=== PATIENT | male | born 1945 | race Caucasian/White ===

== ENCOUNTER 2020-05-02 15:54 | Emergency (ER) | payer MEDICARE, MEDICAID ==
[~2020-05-02] VITALS: Ht 185.4 cm; Wt 104.5 kg
[~2020-05-02 15:54] MED LIST: CYCL-1 PO; HYDR28CR14 TOP; LIDOcaine 1% W/epiNEPHrine 1:200,000 10ml vial ONE
[2020-05-02 16:14] VITALS: BP 138/59
[2020-05-02] MEDS ORDERED: TETanus/Pertussis (Acell)/Diphther VAC/PF (Tdap-Adult) 0.5ml syringe IMVAC ONE (17:00)
== END 2020-05-02 17:28 | disposition home or self-care (01) ==
LOC: ER 15:55
DX: S91.209A Unspecified open wound of unspecified toe(s) with damage to nail, initial encounter (principal); M79.674 Pain in right toe(s); I10 Essential (primary) hypertension; K21.9 Gastro-esophageal reflux disease without esophagitis; G89.29 Other chronic pain; Z87.11 Personal history of peptic ulcer disease; Z98.890 Other specified postprocedural states; Z79.899 Other long term (current) drug therapy; X58.XXXA Exposure to other specified factors, initial encounter; Y93.89 Activity, other specified; Y92.89 Other specified places as the place of occurrence of the external cause; Y99.8 Other external cause status
CPT/HCPCS: 11730; 90471; 90715; 99283; 99284

== ENCOUNTER 2022-09-03 12:04 | Emergency (ER) | payer OTHER, MEDICAID ==
[~2022-09-03] VITALS: Ht 185.4 cm; Wt 104.5 kg
[~2022-09-03 12:04] MED LIST changes: -LIDOcaine 1% W/epiNEPHrine 1:200,000 10ml vial ONE; +RIVA20TA PO
[2022-09-03 12:49] VITALS: BP 130/74
[2022-09-03] MEDS ORDERED: GUAI400T92 PO (15:44)
[2022-09-03] MEDS ORDERED: AZIT-31 PO (15:44)
[2022-09-03] MEDS ORDERED: ALBU8HFA PO (15:44)
== END 2022-09-03 15:59 | disposition home or self-care (01) ==
LOC: ER 12:05
DX: J06.9 Acute upper respiratory infection, unspecified (principal); I10 Essential (primary) hypertension; K21.9 Gastro-esophageal reflux disease without esophagitis; G89.29 Other chronic pain; M54.9 Dorsalgia, unspecified; E11.9 Type 2 diabetes mellitus without complications; F17.200 Nicotine dependence, unspecified, uncomplicated; Z79.899 Other long term (current) drug therapy
CPT/HCPCS: 71046; 99283

== ENCOUNTER 2023-04-22 11:05 | Emergency (ER) | payer MEDICARE, MEDICAID ==
[~2023-04-22] VITALS: Ht 185.4 cm; Wt 109.0 kg
[~2023-04-22 11:05] MED LIST changes: +GUAI400T92 PO
[2023-04-22 11:07] VITALS: BP 152/90; PULSE 55; RESP 16; TEMP 97.6; O2SAT 94
[2023-04-22] MEDS ORDERED: RIVA20TA PO (13:13)
== END 2023-04-22 13:24 | disposition home or self-care (01) ==
LOC: ER 11:06
DX: I74.8 Embolism and thrombosis of other arteries (principal); Z76.0 Encounter for issue of repeat prescription; I10 Essential (primary) hypertension; G89.29 Other chronic pain; M54.9 Dorsalgia, unspecified
CPT/HCPCS: 99281

== ENCOUNTER 2023-06-16 10:41 | Emergency (ER) | payer MEDICARE, MEDICAID ==
[~2023-06-16] VITALS: Ht 185.4 cm; Wt 92.5 kg
[2023-06-16 10:54] VITALS: BP 160/68; PULSE 90; RESP 18; O2SAT 98
[2023-06-16] MEDS ORDERED: RIVA20TA PO (12:32)
[2023-06-16] MEDS ORDERED: MAGN296S68 PO (12:32)
--- NOTE | 2023-06-16 17:46 | NUR ---
I have reviewed and agree with all interventions, assessments performed and documented by Mine Baker LVN
[2023-06-16 18:17] VITALS: TEMP 98
[2023-06-16 21:50] LABS: OCCULT BLOOD STOOL NEGATIVE (Neg)
== END 2023-06-16 18:18 | disposition home or self-care (01) ==
LOC: ER 10:42
DX: K59.00 Constipation, unspecified (principal); I10 Essential (primary) hypertension; K21.9 Gastro-esophageal reflux disease without esophagitis; Z79.899 Other long term (current) drug therapy
CPT/HCPCS: 82272; 99283

== ENCOUNTER 2024-09-01 14:28 | Inpatient (IN) | payer MEDICARE, MEDICAID ==
[~2024-09-01] VITALS: Ht 185.4 cm; Wt 86.0 kg
[~2024-09-01 14:28] MED LIST changes: -CYCL-1 PO; -RIVA20TA PO
[2024-09-01 16:48] LABS: BASOPHILS % (AUTO) 0.2 % (0-1); EOSINOPHILS % (AUTO) 0.1 % (0-6); HEMATOCRIT 38.5 % (42.0-52.0); HEMOGLOBIN 13.2 g/dl (14.0-17.9); LYMPHOCYTES % (AUTO) 15.5 % (21-51); MEAN CORPUSCULAR HEMOGLOBIN 31.3 PG (27.0-31.0); MEAN CORPUSCULAR HGB CONC 34.2 g/dL (33.0-36.5); MEAN CORPUSCULAR VOLUME 91.3 FL (78-98); MEAN PLATELET VOLUME 7.9 FL (7.4-10.4); MONOCYTES # (AUTO) 0.9 X10'3 (0-0.9); MONOCYTES % (AUTO) 12.9 % (2-12); NEUTROPHILS # (AUTO) 4.8 X10'3 (1.8-7.7); NEUTROPHILS % (AUTO) 71.3 % (42-75); PLATELET COUNT 185 X10'3 (140-440); RED BLOOD COUNT 4.22 X10'6 (4.70-6.10); RED CELL DISTRIBUTION WIDTH 13.7 % (11.5-14.5); WHITE BLOOD COUNT 6.7 X10'3 (4.5-11.0)
[2024-09-01 17:00] LABS: ALBUMIN 3.1 G/DL (3.4-5.0); ANION GAP 10 (8-16); BLOOD UREA NITROGEN 24 MG/DL (7-18); BUN/CREATININE RATIO 24.7 (10.0-20.0); CALCIUM 8.6 MG/DL (8.5-10.1); CHLORIDE 95 MMOL/L (99-107); CREATININE 0.97 MG/DL (0.60-1.10); GLUCOSE 345 MG/DL (70-104); MAGNESIUM 1.9 MG/DL (1.5-2.4); SODIUM 131 MMOL/L (135-145); TOTAL CARBON DIOXIDE 26.1 MMOL/L (24-32); eCRCL 71 ML/MIN; eGFR 75 ML/MIN
[2024-09-01] MEDS: normal saline 1000ML IV soln IVB ONE (18:00)
[2024-09-01] MEDS ORDERED: OMEP40CA21 PO (20:28)
[2024-09-01] MEDS ORDERED: RIVA20TA PO (20:28)
[2024-09-01] MEDS ORDERED: potassium Cl 40MEQ/1/2NS 520ml 520 ML IV PRN (21:35)
[2024-09-01] MEDS ORDERED: magnesium sulf-water 2g/50mL 50 ML IV PRN (21:35)
[2024-09-01] MEDS ORDERED: magnesium Cl slow-release 64mg tablet PO PRN (21:35)
[2024-09-01] MEDS ORDERED: magnesium hydroxide 30ml (MOM) UD suspension PO PRN (21:35)
[2024-09-01] MEDS ORDERED: potassium Cl 20 mEq SR tablet PO PRN ×2 (21:35)
[2024-09-01] MEDS ORDERED: acetaminophen 325mg tablet PO PRN (21:35)
[2024-09-01] MEDS ORDERED: magnesium sulf-water 4G/100mL 100 ML IV PRN (21:35)
[2024-09-01] MEDS ORDERED: ondansetron/PF 4mg/2ml inj IV PRN (21:35)
[2024-09-01] MEDS ORDERED: mag hydrox/Alum hydrox/simeth 30ml oral suspension PO PRN (21:35)
[2024-09-01] MEDS ORDERED: iohexol 350MG/ML 100ml bottle IV ONE (21:52)
[2024-09-01] MEDS: normal saline 1000ml 1,000 ML IV SCH (22:13)
[2024-09-01 22:16] LABS: APTT 28 SECONDS (22-32); PROTHROMBIN TIME 10.9 SECONDS (9.0-12.0)
[2024-09-01] MEDS ORDERED: glucagon, human recombinant 1mg kit SUBCUT PRN (22:20)
[2024-09-01] MEDS ORDERED: DEXTROSE 15 GM of carb/4 tabs (each vial/BOTTLE has 4 tablets) PO PRN ×2 (22:20)
[2024-09-01] MEDS: insulin glargine (Lantus) pen - multi-dose SQ SCH (22:20)
[2024-09-01] MEDS ORDERED: dextrose 50%-water 50ml dispensing syringe IV PRN ×2 (22:20)
[2024-09-01 22:24] LABS: PRO BRAIN NATRIURETIC PEPTIDE 329 PG/ML (0-450); THYROID STIMULATING HORMONE 0.97 ulU/ml (0.34-4.50)
[2024-09-01 22:41] LABS: HEMOGLOBIN A1C > 12.0 % (4.5-6.2)
[2024-09-01 23:02] LABS: BILIRUBIN,URINE NEGATIVE (Neg); CLARITY,URINE CLEAR (Clear); COLOR,URINE YELLOW (Yellow); GLUCOSE, URINE >=1000 mg/dl (Neg); KETONES,URINE 15 mg/dl (Neg); LEUKOCYTE ESTERASE ,URINE NEGATIVE (Neg); NITRITES, URINE NEGATIVE (Neg); OCCULT BLOOD,URINE TRACE-INTACT (Neg); PH,URINE 5.5 (4.8-8.0); PROTEIN,URINE 30 mg/dl (Neg); UROBILINOGEN,URINE 0.2 E.U/dL (0.2-1.0)
[2024-09-01] MEDS: ipratropium/albuterol 3ml nebule NEB PRN (23:08)
[2024-09-01 23:10] VITALS: PULSE 109; RESP 18; O2SAT 94
[2024-09-01 23:14] LABS: UA COLLECTION TYPE URINAL
[2024-09-01 23:16] VITALS: PULSE 104; RESP 18
[2024-09-01 23:16] LABS: BACTERIA,URINE FEW /HPF (Neg); RBC,URINE 0-2 /HPF (0-2); SQUAMOUS EPITHELIAL CELL,UR FEW /LPF (FEW)
[2024-09-01 23:17] LABS: WBC,URINE 0-4 /HPF (0-4)
[2024-09-02] MEDS: insulin Lispro (HumaLOG) vial - multi-dose SQ ONE (00:47)
[2024-09-02] MEDS ORDERED: apixaban 5mg tablet PO SCH (01:15)
[2024-09-02] MEDS: insulin regular, human 10 units/0.1 ml syringe IV ONE (01:57)
[2024-09-02] MEDS: albuterol 2.5 MG/3 ML nebule NEB SCH (02:00)
[2024-09-02 02:59] VITALS: PULSE 99; RESP 20; O2SAT 93
[2024-09-02] MEDS: glipizide 5mg tablet PO ONE (03:16)
[2024-09-02 04:04] LABS: BASOPHILS % (AUTO) 0.2 % (0-1); EOSINOPHILS % (AUTO) 0.6 % (0-6); HEMOGLOBIN 11.3 g/dl (14.0-17.9); LYMPHOCYTES # (AUTO) 1.4 X10'3 (1.1-4.8); MEAN CORPUSCULAR HEMOGLOBIN 30.4 PG (27.0-31.0); MEAN CORPUSCULAR HGB CONC 33.4 g/dL (33.0-36.5); MEAN CORPUSCULAR VOLUME 91.1 FL (78-98); MEAN PLATELET VOLUME 7.1 FL (7.4-10.4); MONOCYTES % (AUTO) 15.4 % (2-12); NEUTROPHILS # (AUTO) 3.9 X10'3 (1.8-7.7); NEUTROPHILS % (AUTO) 61.8 % (42-75); PLATELET COUNT 162 X10'3 (140-440); RED BLOOD COUNT 3.73 X10'6 (4.70-6.10); RED CELL DISTRIBUTION WIDTH 13.6 % (11.5-14.5); WHITE BLOOD COUNT 6.4 X10'3 (4.5-11.0)
[2024-09-02 04:20] LABS: APTT 28 SECONDS (22-32); D-DIMER 2.74 MG/L FEU (0-0.50); INR 1.1 INR
[2024-09-02 04:23] LABS: ALANINE AMINOTRANSFERASE 38 U/L (12-78); ALBUMIN 2.6 G/DL (3.4-5.0); ALBUMIN/GLOBULIN RATIO 0.6 (1.1-1.5); ALKALINE PHOSPHATASE 54 IU/L (46-116); ANION GAP 9 (8-16); ASPARTATE AMINO TRANSFERASE 53 U/L (10-37); BILIRUBIN,TOTAL 0.6 MG/DL (0.1-1.0); BLOOD UREA NITROGEN 20 MG/DL (7-18); BUN/CREATININE RATIO 21.3 (10.0-20.0); CALCIUM 8.3 MG/DL (8.5-10.1); CHLORIDE 98 MMOL/L (99-107); CHOL/HDL RATIO 2.3 (0.00-4.99); CHOLESTEROL 111 MG/DL (0-200); CREATININE 0.94 MG/DL (0.60-1.10); GLUCOSE 300 MG/DL (70-104); HDL CHOLESTEROL 49 MG/DL (35-60); LDL CHOLESTEROL 49 MG/DL (50-100); MAGNESIUM 1.7 MG/DL (1.5-2.4); PHOSPHORUS 2.9 MG/DL (2.3-4.5); SODIUM 132 MMOL/L (135-145); TOTAL PROTEIN 6.9 G/DL (6.4-8.2); TRIGLYCERIDES 80 MG/DL (20-135); eCRCL 73 ML/MIN; eGFR 78 ML/MIN
[2024-09-02 04:43] LABS: TOTAL CELLS COUNTED 100
[2024-09-02] MEDS: INSULIN LISPRO 100 UNIT/ML INSULN.PEN MULTI-DOSE SQ SCH (07:00)
[2024-09-02] MEDS: docusate sod 100mg capsule PO SCH (08:00)
[2024-09-02] MEDS: K and/or MAG REPLACEMENT MC SCH (08:00)
[2024-09-02 08:56] VITALS: PULSE 88; RESP 18; O2SAT 93
[2024-09-02] MEDS: pantoprazole 40mg Tablet.DR PO SCH (09:15)
[2024-09-02 14:59] VITALS: PULSE 88; RESP 20; O2SAT 94
[2024-09-02 17:32] VITALS: RESP 14; O2SAT 96
[2024-09-02 18:00] VITALS: BP 161/62; PULSE 90; RESP 18; TEMP 98; O2SAT 94
[2024-09-02] MEDS ORDERED: rivaroxaban 20mg tablet PO SCH (18:00)
[2024-09-02] MEDS ORDERED: rivaroxaban 15mg tablet PO SCH (18:00)
[2024-09-02] MEDS: rivaroxaban 20mg tablet PO SCH (19:27)
[2024-09-02 22:00] VITALS: BP 120/53; PULSE 91; RESP 18; TEMP 98.3; O2SAT 93
[2024-09-03] VITALS (8 sets, daily range): BP systolic 116–170; BP diastolic 45–75; PULSE 53–102; RESP 14–18; TEMP 97.4–98; O2SAT 90–98
[2024-09-03] MEDS: HYDROcodone/acetaminophen 5mg/325mg tablet PO PRN ×2 (00:46→14:39)
[2024-09-03] MEDS: glipizide 5mg tablet PO ONE (05:34)
[2024-09-03 06:57] LABS: BASOPHILS % (AUTO) 0.3 % (0-1); EOSINOPHILS # (AUTO) 0.2 X10'3 (0-0.9); EOSINOPHILS % (AUTO) 2.8 % (0-6); HEMATOCRIT 33.3 % (42.0-52.0); HEMOGLOBIN 11.3 g/dl (14.0-17.9); MEAN CORPUSCULAR HEMOGLOBIN 30.7 PG (27.0-31.0); MEAN CORPUSCULAR HGB CONC 34.1 g/dL (33.0-36.5); MEAN CORPUSCULAR VOLUME 90.1 FL (78-98); MEAN PLATELET VOLUME 7.5 FL (7.4-10.4); MONOCYTES # (AUTO) 0.8 X10'3 (0-0.9); MONOCYTES % (AUTO) 12.6 % (2-12); NEUTROPHILS # (AUTO) 3.4 X10'3 (1.8-7.7); NEUTROPHILS % (AUTO) 53.3 % (42-75); PLATELET COUNT 160 X10'3 (140-440); RED BLOOD COUNT 3.69 X10'6 (4.70-6.10); RED CELL DISTRIBUTION WIDTH 13.4 % (11.5-14.5); WHITE BLOOD COUNT 6.3 X10'3 (4.5-11.0)
[2024-09-03 07:01] LABS: APTT 33 SECONDS (22-32); INR 1.2 INR; PROTHROMBIN TIME 12.6 SECONDS (9.0-12.0)
[2024-09-03 07:17] LABS: ALANINE AMINOTRANSFERASE 32 U/L (12-78); ALBUMIN 2.5 G/DL (3.4-5.0); ALBUMIN/GLOBULIN RATIO 0.6 (1.1-1.5); ALKALINE PHOSPHATASE 54 IU/L (46-116); ANION GAP 7 (8-16); ASPARTATE AMINO TRANSFERASE 40 U/L (10-37); BILIRUBIN,TOTAL 0.5 MG/DL (0.1-1.0); BLOOD UREA NITROGEN 16 MG/DL (7-18); BUN/CREATININE RATIO 21.1 (10.0-20.0); CALCIUM 8.5 MG/DL (8.5-10.1); CHLORIDE 100 MMOL/L (99-107); CREATININE 0.76 MG/DL (0.60-1.10); GLUCOSE 284 MG/DL (70-104); MAGNESIUM 1.9 MG/DL (1.5-2.4); POTASSIUM 3.8 MMOL/L (3.5-5.1); SODIUM 133 MMOL/L (135-145); TOTAL CARBON DIOXIDE 25.7 MMOL/L (24-32); TOTAL PROTEIN 6.9 G/DL (6.4-8.2); eCRCL 91 ML/MIN; eGFR > 90 ML/MIN
[2024-09-03] MEDS: atorvastatin 20mg tablet PO SCH (09:54)
[2024-09-03] MEDS: lisinopril 5mg tablet PO SCH (09:55)
[2024-09-03] MEDS ORDERED: metFORMIN 500mg tablet PO SCH (11:30)
[2024-09-03] MEDS: metFORMIN 500mg tablet PO SCH (12:20)
[2024-09-03] MEDS ORDERED: iohexol 350MG/ML 100ml bottle IV ONE (17:50)
[2024-09-03] MEDS: calcium carbonate/vitamin D3 tablet PO SCH (17:51)
[2024-09-03] MEDS: acetaminophen 325mg tablet PO PRN (19:13)
[2024-09-04] VITALS (21 sets, daily range): BP systolic 117–150; BP diastolic 50–88; PULSE 69–91; RESP 13–23; TEMP 97.6–98.2; O2SAT 92–98
[2024-09-04 05:49] LABS: BASOPHILS % (AUTO) 0.3 % (0-1); EOSINOPHILS # (AUTO) 0.2 X10'3 (0-0.9); EOSINOPHILS % (AUTO) 2.4 % (0-6); HEMATOCRIT 32.5 % (42.0-52.0); HEMOGLOBIN 11.2 g/dl (14.0-17.9); LYMPHOCYTES # (AUTO) 1.6 X10'3 (1.1-4.8); LYMPHOCYTES % (AUTO) 20.7 % (21-51); MEAN CORPUSCULAR HEMOGLOBIN 31.3 PG (27.0-31.0); MEAN CORPUSCULAR HGB CONC 34.4 g/dL (33.0-36.5); MEAN PLATELET VOLUME 7.4 FL (7.4-10.4); MONOCYTES % (AUTO) 13.2 % (2-12); NEUTROPHILS % (AUTO) 63.4 % (42-75); PLATELET COUNT 180 X10'3 (140-440); RED BLOOD COUNT 3.57 X10'6 (4.70-6.10); RED CELL DISTRIBUTION WIDTH 13.4 % (11.5-14.5); WHITE BLOOD COUNT 7.9 X10'3 (4.5-11.0)
[2024-09-04 06:00] LABS: APTT 30 SECONDS (22-32); INR 1.1 INR; PROTHROMBIN TIME 11.5 SECONDS (9.0-12.0)
[2024-09-04 06:26] LABS: ALANINE AMINOTRANSFERASE 34 U/L (12-78); ALBUMIN 2.2 G/DL (3.4-5.0); ALBUMIN/GLOBULIN RATIO 0.5 (1.1-1.5); ALKALINE PHOSPHATASE 51 IU/L (46-116); ANION GAP 6 (8-16); ASPARTATE AMINO TRANSFERASE 31 U/L (10-37); BILIRUBIN,TOTAL 0.5 MG/DL (0.1-1.0); BLOOD UREA NITROGEN 19 MG/DL (7-18); BUN/CREATININE RATIO 20.9 (10.0-20.0); CALCIUM 8.6 MG/DL (8.5-10.1); CHLORIDE 102 MMOL/L (99-107); CREATININE 0.91 MG/DL (0.60-1.10); GLUCOSE 259 MG/DL (70-104); MAGNESIUM 1.9 MG/DL (1.5-2.4); PHOSPHORUS 3.6 MG/DL (2.3-4.5); POTASSIUM 4.2 MMOL/L (3.5-5.1); SODIUM 137 MMOL/L (135-145); TOTAL CARBON DIOXIDE 29.5 MMOL/L (24-32); TOTAL PROTEIN 6.4 G/DL (6.4-8.2); eCRCL 76 ML/MIN; eGFR 81 ML/MIN
[2024-09-04] MEDS: metFORMIN 500mg tablet PO SCH (06:31)
[2024-09-04] MEDS ORDERED: metFORMIN 500mg tablet PO SCH (08:00)
[2024-09-04] MEDS: cholecalciferol (vitamin D3) 1,000 unit (25mcg) tablet PO SCH (08:40)
[2024-09-04] MEDS ORDERED: BUPIVAcaine 2.5mg/ml inj 50ml vial (contains preservative) ONE (17:14)
[2024-09-04] MEDS ORDERED: sevoflurane 250ml liquid IH ONE (17:27)
[2024-09-04] MEDS ORDERED: fentaNYL/PF 50MCG/1 ML 2ML syringe ONE (17:32)
[2024-09-04] MEDS: BUPIVAcaine/PF 2.5 mg/ml (0.25%) 30ml vial IJ ONE (17:57)
[2024-09-04] MEDS ORDERED: propofol inj 20 ML IV ONE (18:05)
[2024-09-04] MEDS ORDERED: ceFAZolin 1000mg inj ONE ×2 (18:05)
[2024-09-04] MEDS ORDERED: ondansetron/PF 4mg/2ml inj IV PRN (19:05)
[2024-09-04] MEDS: ringers solution, lacted 1,000 ML IV SCH (19:05)
[2024-09-04] MEDS ORDERED: HYDROmorphone/PF 0.2 MG/ML SYRINGE IV PRN ×2 (19:05)
[2024-09-04] MEDS ORDERED: morphine 2 MG/ML inj. syringe IV PRN (19:05)
[2024-09-04] MEDS ORDERED: labetalol 20mg/4ml (5mg/ml) syringe IV PRN (19:05)
[2024-09-04] MEDS ORDERED: morphine 4 MG/ML inj SYRINge IV PRN (19:05)
[2024-09-04] MEDS ORDERED: dextrose 50%-water 50ml dispensing syringe IV PRN ×2 (22:10)
[2024-09-04] MEDS ORDERED: glucagon, human recombinant 1mg kit SUBCUT PRN (22:10)
[2024-09-04] MEDS ORDERED: DEXTROSE 15 GM of carb/4 tabs (each vial/BOTTLE has 4 tablets) PO PRN ×2 (22:10)
[2024-09-04] MEDS: INSULIN LISPRO 100 UNIT/ML INSULN.PEN MULTI-DOSE SQ SCH (22:38)
[2024-09-05 06:00] VITALS: BP 123/55; PULSE 80; RESP 18; TEMP 97.6; O2SAT 96
[2024-09-05 06:43] LABS: BASOPHILS % (AUTO) 0.4 % (0-1); EOSINOPHILS # (AUTO) 0.3 X10'3 (0-0.9); EOSINOPHILS % (AUTO) 3.9 % (0-6); HEMATOCRIT 32.1 % (42.0-52.0); HEMOGLOBIN 11.1 g/dl (14.0-17.9); LYMPHOCYTES # (AUTO) 1.8 X10'3 (1.1-4.8); LYMPHOCYTES % (AUTO) 26.3 % (21-51); MEAN CORPUSCULAR HEMOGLOBIN 31.4 PG (27.0-31.0); MEAN CORPUSCULAR HGB CONC 34.5 g/dL (33.0-36.5); MEAN CORPUSCULAR VOLUME 91.1 FL (78-98); MEAN PLATELET VOLUME 7.7 FL (7.4-10.4); MONOCYTES # (AUTO) 0.9 X10'3 (0-0.9); MONOCYTES % (AUTO) 13.1 % (2-12); NEUTROPHILS # (AUTO) 3.8 X10'3 (1.8-7.7); NEUTROPHILS % (AUTO) 56.3 % (42-75); PLATELET COUNT 210 X10'3 (140-440); RED BLOOD COUNT 3.52 X10'6 (4.70-6.10); RED CELL DISTRIBUTION WIDTH 13.2 % (11.5-14.5); WHITE BLOOD COUNT 6.8 X10'3 (4.5-11.0)
[2024-09-05 06:53] LABS: PROTHROMBIN TIME 10.9 SECONDS (9.0-12.0)
[2024-09-05 07:19] LABS: ALANINE AMINOTRANSFERASE 21 U/L (12-78); ALBUMIN 2.1 G/DL (3.4-5.0); ALBUMIN/GLOBULIN RATIO 0.5 (1.1-1.5); ALKALINE PHOSPHATASE 54 IU/L (46-116); ANION GAP 5 (8-16); ASPARTATE AMINO TRANSFERASE 25 U/L (10-37); BILIRUBIN,TOTAL 0.4 MG/DL (0.1-1.0); BLOOD UREA NITROGEN 17 MG/DL (7-18); BUN/CREATININE RATIO 19.3 (10.0-20.0); CALCIUM 8.7 MG/DL (8.5-10.1); CHLORIDE 100 MMOL/L (99-107); CREATININE 0.88 MG/DL (0.60-1.10); GLUCOSE 283 MG/DL (70-104); MAGNESIUM 1.7 MG/DL (1.5-2.4); PHOSPHORUS 3.8 MG/DL (2.3-4.5); POTASSIUM 4.1 MMOL/L (3.5-5.1); SODIUM 133 MMOL/L (135-145); TOTAL CARBON DIOXIDE 27.6 MMOL/L (24-32); TOTAL PROTEIN 6.6 G/DL (6.4-8.2); eCRCL 78 ML/MIN; eGFR 84 ML/MIN
[2024-09-05 08:00] VITALS: BP 132/55; PULSE 77; RESP 18; O2SAT 96
[2024-09-05 10:00] VITALS: BP 115/49; PULSE 80; RESP 20; TEMP 97.8; O2SAT 91
[2024-09-05] MEDS: terbinafine 250mg tablet PO SCH (17:21)
[2024-09-05] MEDS: rivaroxaban 20mg tablet PO SCH (17:53)
[2024-09-05 18:00] VITALS: BP 133/67; PULSE 86; RESP 14; TEMP 98.6; O2SAT 90
[2024-09-05 22:00] VITALS: BP_SYST 146; BP_SYST 148; BP_DIAS 64; BP_DIAS 77; PULSE 102; PULSE 98; RESP 18; TEMP 97.8; O2SAT 90
[2024-09-06 06:00] VITALS: BP 148/69; PULSE 90; RESP 18; TEMP 98.3; O2SAT 93
[2024-09-06 06:33] LABS: BASOPHILS % (AUTO) 0.6 % (0-1); EOSINOPHILS # (AUTO) 0.3 X10'3 (0-0.9); EOSINOPHILS % (AUTO) 4.1 % (0-6); HEMATOCRIT 33.7 % (42.0-52.0); HEMOGLOBIN 11.4 g/dl (14.0-17.9); LYMPHOCYTES # (AUTO) 1.6 X10'3 (1.1-4.8); LYMPHOCYTES % (AUTO) 24.9 % (21-51); MEAN CORPUSCULAR HEMOGLOBIN 30.4 PG (27.0-31.0); MEAN CORPUSCULAR HGB CONC 33.7 g/dL (33.0-36.5); MEAN CORPUSCULAR VOLUME 90.2 FL (78-98); MEAN PLATELET VOLUME 7.3 FL (7.4-10.4); MONOCYTES # (AUTO) 0.8 X10'3 (0-0.9); NEUTROPHILS # (AUTO) 3.6 X10'3 (1.8-7.7); NEUTROPHILS % (AUTO) 57.4 % (42-75); PLATELET COUNT 235 X10'3 (140-440); RED BLOOD COUNT 3.74 X10'6 (4.70-6.10); RED CELL DISTRIBUTION WIDTH 13.4 % (11.5-14.5); WHITE BLOOD COUNT 6.2 X10'3 (4.5-11.0)
[2024-09-06 06:48] LABS: INR 1.2 INR; PROTHROMBIN TIME 12.7 SECONDS (9.0-12.0)
[2024-09-06 09:30] LABS: ALANINE AMINOTRANSFERASE 22 U/L (12-78); ALBUMIN 2.2 G/DL (3.4-5.0); ALBUMIN/GLOBULIN RATIO 0.5 (1.1-1.5); ALKALINE PHOSPHATASE 57 IU/L (46-116); ANION GAP 8 (8-16); ASPARTATE AMINO TRANSFERASE 22 U/L (10-37); BILIRUBIN,TOTAL 0.4 MG/DL (0.1-1.0); BLOOD UREA NITROGEN 13 MG/DL (7-18); BUN/CREATININE RATIO 19.1 (10.0-20.0); CALCIUM 8.6 MG/DL (8.5-10.1); CHLORIDE 98 MMOL/L (99-107); CREATININE 0.68 MG/DL (0.60-1.10); GLUCOSE 246 MG/DL (70-104); MAGNESIUM 1.7 MG/DL (1.5-2.4); PHOSPHORUS 2.9 MG/DL (2.3-4.5); POTASSIUM 4.1 MMOL/L (3.5-5.1); SODIUM 133 MMOL/L (135-145); TOTAL CARBON DIOXIDE 27.4 MMOL/L (24-32); eCRCL 101 ML/MIN; eGFR > 90 ML/MIN
[2024-09-06 10:30] VITALS: BP 142/70; PULSE 93; RESP 21; TEMP 97.8; O2SAT 96
[2024-09-06 14:50] VITALS: PULSE 93; RESP 20; O2SAT 96
[2024-09-06] MEDS: lactose-reduced food (Ensure High Protein) 237ml bottle PO SCH (17:30)
[2024-09-06] MEDS ORDERED: JUVEN Smoothie Arginine/Glut./Ca2+Bmb (Juven 19.3pkt) 240ml cup PO SCH (17:30)
[2024-09-06] MEDS ORDERED: lactose-reduced food (Ensure High Protein) 237ml bottle PO SCH (17:30)
[2024-09-06 18:00] VITALS: BP 147/61; PULSE 78; RESP 13; TEMP 98.2; O2SAT 93
[2024-09-06 20:00] VITALS: RESP 20
[2024-09-06 22:00] VITALS: BP_SYST 157; BP_SYST 166; BP_DIAS 66; BP_DIAS 79; PULSE 79; PULSE 80; RESP 13; TEMP 98.8; O2SAT 92
[2024-09-07 06:00] VITALS: BP 154/67; PULSE 77; RESP 18; TEMP 97.9; O2SAT 93
[2024-09-07 08:15] VITALS: RESP 20
[2024-09-07 08:32] LABS: ALBUMIN 2.1 G/DL (3.4-5.0); ANION GAP 3 (8-16); BLOOD UREA NITROGEN 15 MG/DL (7-18); BUN/CREATININE RATIO 18.5 (10.0-20.0); CALCIUM 8.5 MG/DL (8.5-10.1); CHLORIDE 98 MMOL/L (99-107); CREATININE 0.81 MG/DL (0.60-1.10); GLUCOSE 275 MG/DL (70-104); SODIUM 132 MMOL/L (135-145); eCRCL 85 ML/MIN; eGFR > 90 ML/MIN
[2024-09-07 10:00] VITALS: BP 137/60; PULSE 68; RESP 17; TEMP 97.6; O2SAT 94
[2024-09-07 10:17] VITALS: BP_SYST 137
[2024-09-07 10:20] VITALS: PULSE 93; RESP 20; O2SAT 96
[2024-09-07 10:21] VITALS: PULSE 93; RESP 20; O2SAT 96
== END 2024-09-07 13:40 | DRG 481 ==
LOC: ER 14:28 → ED HOLD 21:46 → ORTHO 4S 09-02 16:50
PROVIDERS: ADMIT Specialist; ATTEND Family Medicine
PROC: B32T1ZZ Computerized Tomography (CT Scan) of Left Pulmonary Artery using Low Osmolar Contrast (ICD-10-PCS; 2024-09-02)
PROC: B3201ZZ Computerized Tomography (CT Scan) of Thoracic Aorta using Low Osmolar Contrast (ICD-10-PCS; 2024-09-02)
PROC: B32S1ZZ Computerized Tomography (CT Scan) of Right Pulmonary Artery using Low Osmolar Contrast (ICD-10-PCS; 2024-09-02)
PROC: BQ2S1ZZ Computerized Tomography (CT Scan) of Left Lower Extremity using Low Osmolar Contrast (ICD-10-PCS; 2024-09-03)
PROC: 0QH734Z Insertion of Internal Fixation Device into Left Upper Femur, Percutaneous Approach (ICD-10-PCS; principal; 2024-09-04 17:27)
DX: M84.352A Stress fracture, left femur, initial encounter for fracture (principal); D68.69 Other thrombophilia; I10 Essential (primary) hypertension; E86.0 Dehydration; Z20.822 Contact with and (suspected) exposure to COVID-19; Z66 Do not resuscitate; W18.39XA Other fall on same level, initial encounter; E87.8 Other disorders of electrolyte and fluid balance, not elsewhere classified; Z86.711 Personal history of pulmonary embolism; B35.1 Tinea unguium; K21.9 Gastro-esophageal reflux disease without esophagitis; Z87.11 Personal history of peptic ulcer disease; Z86.718 Personal history of other venous thrombosis and embolism; Y93.89 Activity, other specified; Y92.89 Other specified places as the place of occurrence of the external cause; Y99.8 Other external cause status; Z79.01 Long term (current) use of anticoagulants; E11.65 Type 2 diabetes mellitus with hyperglycemia
CPT/HCPCS: 36415; 71045; 71275; 72170; 73502; 73552; 73590; 73700; 73706; 76000; 80048; 80053; 80061; 81001; 82948; 83036; 83605; 83735; 83880; 84100; 84145; 84439; 84443; 84484; 85007; 85025; 85379; 85610; 85730; 87040; 87081; 87502; 87503; 87811; 92508; 92616; 93005; 93922; 93925; 93970; 94640; 94760; 97110; 97161; 97530; 99285; A4615; A4618; A6449; A6590; A7000; C1713; G0378; J0690; J1815; J2704; J3010; J3490; J7030; J7120; Q9967

== ENCOUNTER 2025-01-01 03:17 | Inpatient (IN) | payer MEDICARE, MEDICAID ==
[~2025-01-01] VITALS: Ht 185.4 cm; Wt 94.0 kg
[~2025-01-01 03:17] MED LIST changes: -GUAI400T92 PO; -HYDR28CR14 TOP; +OMEP40CA21 PO; +RIVA20TA PO
--- NOTE | 2025-01-01 04:04 | Physician Documentation ---
History of Present Illness Chief Complaint: Abdominal Pain Stated Complaint: ABDOMINAL PAIN Time Seen by MD: 03:23 Primary Medical Doctor: Dr. Hidalgo Source: patient, EMS Mode of Arrival: EMS, Stretcher Exam Limitations: no limitations HPI Patient with a history of diabetes in with abdominal pain over the past 10 days and he reports no bowel movement during that time. No nausea or vomiting. States in the last couple of days he has had trouble urinating. Pain is 8/10 and mostly in the lower part of the abdomen. No new back pain. No hx of abdominal surgery. Medication Reconciliation Allergies: Uncoded Allergies: lactose (milk) (Adverse Reaction, Unknown, 09/06/24) Scheduled Omeprazole (Prilosec), 1 CAP PO DAILY, (Reported) Rivaroxaban (Xarelto), 1 TAB PO DAILY, (Reported) Past Medical History Past Medical History: Hypertension, GERD, Peptic Ulcer Disease, *HEMATOLOGY*, Diabetes, Chronic Pain, Chronic Back Pain, Deep Vein Thrombosis Past Surgical History: other Other Past Surgical History: Vein strip done in each leg Patient History: Patient reports no known family medical history. Alcohol Use: None Drug Use: none Lives In: Home Occupation: retired Review of Systems All Other Systems at this time: Reviewed and Negative Physical Exam Vital Signs: Temperature: 98.0, Source: Oral, Heart Rate: 113, Respiratory Rate: 18, BP: 145/83, Pulse Oximetry: 96, Weight: 94.000 Physical Exam General: Alert and oriented x4, well-appearing, well-nourished, no acute distress HEENT: Normocephalic, atraumatic, no visible or palpable masses or depression, extraocular movements intact, PERRLA, no scleral icterus, neck is supple and nontender, mucous membranes moist Heart: Regular rate and rhythm, no murmurs, rubs or gallops Lungs: Clear to auscultation bilaterally, normal work of breathing Abdomen: Soft, mildly tender across the lower abdomen, distended, no palpable masses, normal bowel sounds Back: Spine is without deformity or tenderness, no CVA tenderness Extremities: Full range of motion, no acute deformity, peripheral pulses intact, no cyanosis or edema Musculoskeletal: Normal gait, normal tone Neurologic: Cranial nerves 2-12 are intact, Psychiatric: Alert and oriented x4, judgment and insight normal, normal mood and affect Skin: Good turgor, no rashes Progress Results/Orders Results/Orders Orders - JAIDEN VEGA MD Cbc/Diff (01/01/25 03:29) Lipase (01/01/25 03:29) Urinalysis, Cult If Indicated (01/01/25 03:29) Monitor (01/01/25 03:29) Saline Lock (01/01/25 03:29) Nothing By Mouth (01/01/25 Dinner) Hs Troponin I W Calculations (01/01/25 03:29) Straight Cath For Urine Sample (01/01/25 03:29) Abd W/Decub Or Erect (01/01/25 03:32) Bladder Scan (01/01/25 ) Vital Signs 01/01/25 01/01/25 03:24 03:35 Temp 98.0 Pulse 113 Resp 18 18 B/P (MAP) 145/83 Pulse Ox 96 Laboratory Tests Test 01/01/25 03:45 CBC Comment Medical Decision Making Additional Comments Differential includes but is not limited to: Constipation, ileus, small bowel obstruction, colonic mass, BPH, UTI, dehydration, electrolyte derangement Departure Impression: Primary Impression: Constipation Qualified Codes: K59.00 - Constipation, unspecified Additional Impression: Acute urinary tract infection Additional Impression Text Patient in with constipation. X-ray shows constipation and no bowel obstruction. Independently reviewed by me and confirmed by Radiology. Patient has been able to urinate on his own in the ER despite reporting not urinating fo r 2 days. Does show possible urinary tract infection so culture is pending and starting patient on 1G Rocephin in ED. Ordered NS fluids, oral lactulose and soap suds enema. CBC is unremarkable. Chemistry panel is pending. Patient remained stable. Will be handing over to Dr. Clinton in the ED. Condition: Stable Referrals: NO PRIMARY CARE PROVIDER (PCP) Signature Scribe Signature: no scribe Attestation: no scribe JAIDEN VEGA MD Jan 01, 2025 04:04
[2025-01-01 05:16] LABS: BILIRUBIN,URINE NEGATIVE (Neg); CLARITY,URINE CLEAR (Clear); COLOR,URINE YELLOW (Yellow); GLUCOSE, URINE >=1000 mg/dl (Neg); KETONES,URINE 15 mg/dl (Neg); LEUKOCYTE ESTERASE ,URINE NEGATIVE (Neg); NITRITES, URINE NEGATIVE (Neg); OCCULT BLOOD,URINE TRACE-INTACT (Neg); PROTEIN,URINE NEGATIVE (Neg); UROBILINOGEN,URINE 0.2 E.U/dL (0.2-1.0)
--- NOTE | 2025-01-01 05:22 | RADIOLOGY REPORT ---
EXAM: DI ABD W/DECUB OR ERECT HISTORY: constipation 10 days, pain COMPARISON: None TECHNIQUE: Left lateral decubitus and upright views of the abdomen were performed. FINDINGS: No abnormal bowel dilatation. Gas is present in the distal colon. There is fecal retention in the co sheila. The upright and decubitus films do not demonstrate pathologic-appearing air-fluid levels or free air. No abnormal calcifications are identified overlying the urinary tract. There are postoperative changes percutaneous pinning and multiple surgical clips overlying the left inguinal region. There i s moderate to severe lumbar degenerative disc disease. IMPRESSION: 1. No evidence of bowel obstruction. 2. Fecal retention in the colon suggestive of constipation.
[2025-01-01 05:26] LABS: BASOPHILS % (AUTO) 0.3 % (0-1); EOSINOPHILS % (AUTO) 0 % (0-6); HEMATOCRIT 41.3 % (42.0-52.0); HEMOGLOBIN 14.1 g/dl (14.0-17.9); LYMPHOCYTES % (AUTO) 9.2 % (21-51); MEAN CORPUSCULAR HEMOGLOBIN 30.2 PG (27.0-31.0); MEAN CORPUSCULAR HGB CONC 34.2 g/dL (33.0-36.5); MEAN CORPUSCULAR VOLUME 88.2 FL (78-98); MEAN PLATELET VOLUME 7.8 FL (7.4-10.4); MONOCYTES # (AUTO) 0.6 X10'3 (0-0.9); MONOCYTES % (AUTO) 5.7 % (2-12); NEUTROPHILS # (AUTO) 8.8 X10'3 (1.8-7.7); NEUTROPHILS % (AUTO) 84.8 % (42-75); PLATELET COUNT 200 X10'3 (140-440); RED BLOOD COUNT 4.68 X10'6 (4.70-6.10); RED CELL DISTRIBUTION WIDTH 13.9 % (11.5-14.5); WHITE BLOOD COUNT 10.4 X10'3 (4.5-11.0)
[2025-01-01 05:32] LABS: UA COLLECTION TYPE URINAL
[2025-01-01 05:34] LABS: BACTERIA,URINE 1+ /HPF (Neg); RBC,URINE 0-2 /HPF (0-2); SQUAMOUS EPITHELIAL CELL,UR FEW /LPF (FEW)
[2025-01-01] MEDS: normal saline 1000ml 1,000 ML IV ONE (05:48)
[2025-01-01] MEDS: lactulose 20gm/30ml cup PO ONE (05:48)
--- NOTE | 2025-01-01 06:29 | Physician Documentation ---
History of Present Illness General Chief Complaint: Abdominal Pain Stated Complaint: ABDOMINAL PAIN Time Seen by MD: 05:55 Primary Medical Doctor: Dr. Hidalgo Source: patient, EMS Mode of Arrival: EMS, Stretcher Exam Limitations: no limitations History of Present Illness Initial Comments The patient is a 79-year-old male with a history of HTN, PVD, diabetes mellitus. constipation and noncompliance who presents with lower abdominal pain. He reports that this has been going on for about a week. He also reports that he was not able to urinate for the past two days he has urinated in the ED and shows signs of UTI. His glucose came back elevated at over 400. A CT scan is pending. He lives by himself in [place] on [facility]. The patient has been prescribed Xarelto and medication for diabetes but reports that he has not taken any medication for the past 10 days, at least. Medication Reconciliation Allergies: Uncoded Allergies: lactose (milk) (Adverse Reaction, Unknown, 09/06/24) Scheduled Omeprazole (Prilosec), 1 CAP PO DAILY, (Reported) Rivaroxaban (Xarelto), 1 TAB PO DAILY, (Reported) Past Medical History Past Medical History: Hypertension, GERD, Peptic Ulcer Disease, *HEMATOLOGY*, Diabetes, Chronic Pain, Chronic Back Pain, Deep Vein Thrombosis Past Surgical History: other Other Past Surgical History: Vein strip done in each leg Alcohol Use: None Drug Use: none Lives In: Home Occupation: retired Review of Systems ROS Constitutional: Denies chills, fatigue, fever, weight gain or weight loss. HEENT: Denies hearing loss, sinus pressure or visual changes. Respiratory: Denies cough, shortness of breath or wheezing. Cardiovascular: Denies chest pain, pain while walking (claudication), edema or palpitations. Gastrointestinal: Lower abdominal pain and constipation for one week Genitourinary: Denies painful urination (dysuria), excessive amount of urine (polyuria) or urinary frequency. Metabolic/Endocrine: Denies cold intolerance, heat intolerance, excessive thirst (polydipsia) or excessive hunger (polyphagia). Neurological: Denies dizziness, extremity numbness, extremity weakness, headaches, seizures or tremors. Psychiatric: Denies anxiety or depression. Integumentary: Denies breast discharge, breast lump, hives, mole change(s), rash or skin lesion. Musculoskeletal: Denies back pain, joint pain, joint swelling or neck pain. Hematologic: Denies easily bleeding, easily bruises, lymphedema or issues with blood clots. Immunologic: Denies food allergies or seasonal allergies. Physical Exam Physical Exam Vital Signs: Temperature: 98.0, Source: Oral, Heart Rate: 113, Respiratory Rate: 18, BP: 145/83, Pulse Oximetry: 96, Weight: 94.000 Physical Exam Physical Exam Vitals and nursing note reviewed. Constitutional: General: Patient is awake, alert, oriented x 4 in no acute distress and well appearing. Speech is clear and lucid. Appearance: Normal appearance. Patient is not ill-appearing, toxic-appearing or diaphoretic. HENT: Head: Normocephalic and atraumatic. Mouth/Throat: Mouth: Mucous membranes are moist. Pharynx: Oropharynx is clear. Eyes: General: No scleral icterus. Extraocular Movements: Extraocular movements intact. Pupils: Pupils are equal, round, and reactive to light. Cardiovascular: Rate and Rhythm: Normal rate and regular rhythm. Heart sounds: No murmur heard. Pulmonary: Effort: No respiratory distress. Breath sounds: No wheezing, rhonchi or rales. Abdominal: General: There is no distension. Palpations: There is no fluid wave, hepatomegaly or mass. Tenderness: Lower abdominal tenderness with some guarding. Musculoskeletal: General: No swelling or deformity. Skin: Coloration: Skin is not jaundiced. Findings: No erythema or rash. Neurological: Mental Status: Patient is alert. Progress Results/Orders Results/Orders Orders - ROSALBA JACOBS MD Ct Abdomen Pelvis (01/01/25 06:12) Normal Saline 1000ml (Sodium Chloride 10 (01/01/25 09:15) * Bladder Scan / Post Residual (01/01/25 11:20) Page Hospitalist (01/01/25 11:22) * (A) Pink- Protocol * Q12H@07,19 (01/01/25 11:29) Completed Orders - ROSALBA JACOBS MD Ct Abdomen Pelvis (01/01/25 06:12) CMP (01/01/25 06:19) Electrocardiogram (01/01/25 ) Ondansetron Inj. (Zofran 4mg/2ml Vial) (01/01/25 06:55) Prochlorperazine Inj (Compazine Inj) (01/01/25 08:40) Diphenhydramine Inj (Benadryl Inj.) (01/01/25 08:40) Iohexol 300mg/Ml 100ml Inj. (Omnipaque-3 (01/01/25 08:46) Lidocaine 2% Jelly 11ml Syr (Glydo-Lidoc (01/01/25 11:30) Medications Received in ER Medications (Trade) Dose Ordered Sig/Fidel Route PRN Reason Start Time Stop Time Status Last Admin Dose Admin Sodium Chloride 1,000 ml @ 1,000 mls/hr ONCE ONCE IV 01/01/25 05:15 01/01/25 06:14 DC 01/01/25 05:48 1,000 MLS/HR (cephulac oral solution) 30 gm ONCE ONCE PO 01/01/25 05:15 01/01/25 05:16 DC 01/01/25 05:48 30 GM Ceftriaxone Sodium 50 ml @ 100 mls/hr ONCE ONCE IV 01/01/25 05:40 01/01/25 06:09 DC 01/01/25 07:10 100 MLS/HR (Zofran 4mg/2ml vial) 4 mg ONCE ONCE IV 01/01/25 06:55 01/01/25 06:57 DC 01/01/25 07:10 4 MG (Compazine inj) 5 mg ONCE ONCE IV 01/01/25 08:40 01/01/25 08:45 DC 01/01/25 08:54 5 MG (Benadryl inj.) 25 mg ONCE ONCE IV 01/01/25 08:40 01/01/25 08:45 DC 01/01/25 08:51 25 MG Sodium Chloride 1,000 ml @ 250 mls/hr Q4H IV 01/01/25 09:15 01/01/25 09:26 250 MLS/HR Vital Signs 01/01/25 01/01/25 01/01/25 01/01/25 03:24 03:35 07:00 11:04 Temp 98.0 Pulse 113 105 110 Resp 18 18 18 16 B/P (MAP) 145/83 167/82 (110) 138/82 (100) Pulse Ox 96 96 94 O2 Flow Rate 0 0 Laboratory Tests Test 01/01/25 03:45 01/01/25 04:56 01/01/25 06:03 01/01/25 07:07 White Blood Count 10.4 Red Blood Count 4.68 L Hemoglobin 14.1 Hematocrit 41.3 L Mean Corpuscular Volume 88.2 Mean Corpuscular Hemoglobin 30.2 Mean Corpuscular Hemoglobin Concent 34.2 Red Cell Distribution Width 13.9 Platelet Count 200 Mean Platelet Volume 7.8 Neutrophils (%) (Auto) 84.8 H Lymphocytes (%) (Auto) 9.2 L Monocytes (%) (Auto) 5.7 Eosinophils (%) (Auto) 0 Basophils (%) (Auto) 0.3 Neutrophils # (Auto) 8.8 H Lymphocytes # (Auto) 1.0 L Monocytes # (Auto) 0.6 Eosinophils # (Auto) 0.0 Basophils # (Auto) 0.0 CBC Comment Troponin I High Sensitivity 10 Lipase 99 H Chemistry Comments Urine Specimen Description Urinal Urine Color Yellow Urine Clarity Clear Urine pH 6.0 Urine Specific [place] 1.015 Urine Protein Negative Urine Glucose (UA) >=1000 H Urine Ketones 15 H Urine Occult Blood Trace-intact Urine Nitrite Negative Urine Bilirubin Negative Urine Urobilinogen 0.2 Urine Leukocyte Esterase Negative Urine RBC 0-2 Urine WBC 10-20 H Urine Squamous Epithelial Cells Few Urine Bacteria 1+ Urine Culture Indicated Indicated Volume Urine Centrifuged 10 ml Urine Comment Glucometer 444 *H Sodium Level 138 Potassium Level 4.6 Chloride Level 98 L Carbon Dioxide Level 27.2 Anion Gap 13 Blood Urea Nitrogen 17 Creatinine 1.11 H Estimated GFR/1.73 m2 64 BUN/Creatinine Ratio 15.3 Glucose Level 439 *H Lactic Acid Level 2.7 H Calcium Level 9.1 Total Bilirubin 0.7 Aspartate Amino Transf (AST/SGOT) 17 Alanine Aminotransferase (ALT/SGPT) 22 Alkaline Phosphatase 89 Total Protein 8.0 Albumin 3.6 Globulin 4.4 H Albumin/Globulin Ratio 0.8 L Test 01/01/25 10:05 Lactic Acid Level 2.5 H Microbiology Date/Time Source Procedure Growth Status 01/01/25 07:07 Blood Hand Left Blood Culture - Preliminary NEGATIVE (LESS THAN 24 HOURS) Resulted 01/01/25 05:34 Urine Urinal (Er Only) Urine Culture - Preliminary Culture received. Resulted Medical Decision Making Findings This 79-year-old man presents with abdominal pain likely secondary to her urinary tract infection with urinary retention, mild hydronephrosis and mildly elevated creatinine. He has also noncompliant with his diabetes and has hyperglycemia. In addition to antibiotics and fluids I am inserting a Pink catheter. He will require admission. Departure Disposition: ADMITTED INPATIENT Admitted to Inpatient Unit: to hospitalist Admission Level of Care: Med/Surg Impression: Primary Impression: Constipation Qualified Codes: K59.00 - Constipation, unspecified Additional Impressions: Acute urinary tract infection Acute urinary retention Hyperglycemia Condition: Stable Referrals: NO PRIMARY CARE PROVIDER (PCP) Signature Scribe Signature: . Attestation: . ROSALBA JACOBS MD Jan 01, 2025 06:29
--- NOTE | 2025-01-01 06:59 | ELECTROCARDIOGRAPH REPORT ---
[facility] Test Date: 2025-01-01 Test Time: 06:57:08 Pat Name: RAUL JOHNSON Department: [facility] Patient ID: [facility]-[id number] Room: [place] [address] Gender: M [employer] Cle[employer] Supervisor: : 1945 Requested By: ROSALBA JACOBS Order Number: [id number] Reading MD: Dr. Doc Boland Measurements Intervals [place] Rate: 121 P: -30 MA: 175 QRS: -30 QRSD: 78 T: 203 QT: 252 QTc: 358 Interpretive Statements Sinus tachycardia Ventricular premature complex Aberrant conduction of SV complex(es) Left axis deviation Nonspecific repol abnormality, lateral leads Baseline wander in lead(s) III Electronically Signed On 01-10-2025 17:56:[address] Doc Boland Please click the below link to view image of tracing.
[2025-01-01] MEDS: ondansetron/PF 4mg/2ml inj IV ONE (07:10)
[2025-01-01] MEDS: CefTRIAXone/D5W-Rocephin 1gm 50 ML IV ONE (07:10)
[2025-01-01 08:25] LABS: ALANINE AMINOTRANSFERASE 22 U/L (12-78); ALBUMIN 3.6 G/DL (3.4-5.0); ALBUMIN/GLOBULIN RATIO 0.8 (1.1-1.5); ALKALINE PHOSPHATASE 89 IU/L (46-116); ANION GAP 13 (8-16); ASPARTATE AMINO TRANSFERASE 17 U/L (10-37); BILIRUBIN,TOTAL 0.7 MG/DL (0.1-1.0); BLOOD UREA NITROGEN 17 MG/DL (7-18); BUN/CREATININE RATIO 15.3 (10.0-20.0); CALCIUM 9.1 MG/DL (8.5-10.1); CHLORIDE 98 MMOL/L (99-107); CREATININE 1.11 MG/DL (0.60-1.10); POTASSIUM 4.6 MMOL/L (3.5-5.1); SODIUM 138 MMOL/L (135-145); TOTAL CARBON DIOXIDE 27.2 MMOL/L (24-32); eCRCL 62 ML/MIN; eGFR 64 ML/MIN
[2025-01-01 08:27] LABS: GLUCOSE 439 MG/DL (70-104)
[2025-01-01] MEDS ORDERED: iohexol 300mg/ml 100ml inj. ONE (08:46)
[2025-01-01] MEDS: diphenhydrAMINE 50 mg/ml inj IV ONE (08:51)
[2025-01-01] MEDS: proCHLORperazine 10 MG/2 ml inj IV ONE (08:54)
[2025-01-01] MEDS: normal saline 1000ml 1,000 ML IV SCH ×2 (09:26→14:02)
--- NOTE | 2025-01-01 09:27 | RADIOLOGY REPORT ---
CT CT ABDOMEN PELVIS W/ IV CONTRAST INDICATION: Lower abdominal pain EXAM DATE: 01/01/2025 09:02 AM COMPARISON: None RADIATION DOSE: CTDIvol: 34 mGy, DLP: 1905 mGy*cm PROCEDURE: Helical CT images were obtained of the abdomen and pelvis with IV contrast Sagittal and co flaco reconstructions are provided. ORAL CONTRAST: None. ADDITIONAL IMAGES / REFORMATS: None All CT s cans at this medical facility are performed using dose modulation techniques as appropriate to a perf ormed exam including the following: Automated exposure control was utilized; adjustment of the MA and /or KV according to patient size; and use of iterative reconstruction technique. FINDINGS: LUNG BASE: Mild bibasilar atelectasis. LIVER: There is a subcentimeter cyst. GALLBLADDER AND BILIARY TREE: No calcified gallstones. Normal caliber wall. No intra- or extrahepatic biliary ductal dilation. PANCREAS: 1.9 cm cystic lesion in the pancreatic body. SPLEEN: Normal. BOWEL: Normal. The appendix is normal. ADRENALS: Normal. KIDNEYS AND URETER: Mild right hydro ureteronephrosis with perinephric fat stranding could be a recen tly passed kidney stone. Trace left hydronephrosis. BLADDER: Distended bladder. REPRODUCTIVE ORGANS: Normal. LYMPH NODES:No lymphadenopathy. PERITONEUM: No ascites or free air. No other fluid collection. VESSELS: Scattered atherosclerotic calcifications are noted. RETROPERITONEUM: Normal. ABDOMINAL WALL: Surgical clips are seen in the left inguinal region. BONES: Scattered osseous degenerative changes are noted. Left hip hardware in the femoral neck is see n from an old fracture deformity. All T12 compression deformity. IMPRESSION: Mild right hydro ureteronephrosis with perinephric fat stranding could be a recently passed kidney st one. Trace left hydronephrosis. Distended bladder could be urinary retention. 1.9 cm cystic lesion in the pancreatic body. This could represent an ipmn. Consider MRI on an outpati ent basis for further evaluation.
[2025-01-01] MEDS ORDERED: mineral oil 133ml enema RC PRN (12:00)
[2025-01-01] MEDS ORDERED: mag hydrox/Alum hydrox/simeth 30ml oral suspension PO PRN (12:00)
[2025-01-01] MEDS ORDERED: magnesium sulf-water 4G/100mL 100 ML IV PRN (12:00)
[2025-01-01] MEDS ORDERED: potassium Cl 40MEQ/1/2NS 520ml 520 ML IV PRN (12:00)
[2025-01-01] MEDS ORDERED: DEXTROSE 15 GM of carb/4 tabs (each vial/BOTTLE has 4 tablets) PO PRN ×2 (12:00)
[2025-01-01] MEDS ORDERED: acetaminophen 325mg tablet PO PRN ×2 (12:00)
[2025-01-01] MEDS ORDERED: magnesium sulf-water 2g/50mL 50 ML IV PRN (12:00)
[2025-01-01] MEDS ORDERED: glucagon, human recombinant 1mg kit SUBCUT PRN (12:00)
[2025-01-01] MEDS ORDERED: dextrose 50%-water 50ml dispensing syringe IV PRN ×2 (12:00)
[2025-01-01] MEDS: INSULIN LISPRO 100 UNIT/ML INSULN.PEN MULTI-DOSE SQ SCH ×2 (13:00→14:20)
[2025-01-01] MEDS: LidoCAINE 2% Topical Jelly 11mL syringe (UROJET) TOP ONE (14:22)
[2025-01-01 15:37] VITALS: BP 138/72; PULSE 112; RESP 18; TEMP 98.1; O2SAT 94
[2025-01-01 16:00] VITALS: RESP 18; O2SAT 94
[2025-01-01 18:00] VITALS: BP 142/66; PULSE 102; RESP 14; TEMP 98; O2SAT 91
[2025-01-01 18:15] LABS: HEMOGLOBIN A1C 11.9 % (4.5-6.2)
--- NOTE | 2025-01-01 18:35 | HISTORY AND PHYSICAL ---
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 On arrival to the hospital labs were drawn and the patient's hemoglobin A1c is 11.9 in his blood fingerstick blood glucose was 439 with a normal anion gap and a normal serum bicarb the patient also has significant pyuria suggestive of a UTI though has a normal white blood cell count. A CTA of the abdomen and pelvis was obtained that demonstrates mild right hydro ureter with parents nephric fat stranding which could represent a recent passed kidney stone as well as trace left hydronephrosis. 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 The patient is on a high dose sliding scale insulin 20 units of Lantus is ordered and 7 units of lispro with meals. Also urine culture and IV Rocephin has been administered and ordered daily Allergies: Uncoded Allergies: lactose (milk) (Adverse Reaction, Unknown, 09/06/24) Home Medications Home Medications Active Reported Prilosec (Omeprazole) 40 Mg Capsule 1 Cap PO DAILY Xarelto (Rivaroxaban) 20 Mg Tablet 1 Tab PO DAILY with food Past Medical History Past Medical History Hypertension, GERD, Peptic Ulcer Disease, uncontrolled diabetes mellitus, Chronic Back Pain, Deep Vein Thrombosis, pulmonary embolism with pulmonary infarct, bilateral varicose veins-s/p vein stripping, intra-abdominal mass- undiagnosed Past Surgical History Surgical History Comment Bilateral vein stripping surgery for varicose veins Family History Family History: Patient reports no known family medical history. 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 Full code status ROS ROS Except for positives in the HPI the rest of the 14 point review systems is negative Exam Vitals: Vital Signs Date Time Temp Pulse Resp B/P (MAP) Pulse Ox O2 Delivery O2 Flow Rate FiO2 01/01/25 16:00 18 94 Room Air 01/01/25 15:37 98.1 112 138/72 (94) 01/01/25 13:44 0 General: Gen. No acute distress alert and oriented 4 Lungs clear to ascultation bilaterally, no wheezes rales or rhonchi appreciated Heart normal sinus rhythm no murmurs rubs or clicks noted Abdomen soft mild lower abdominal tenderness bowel sounds are normoactive Lower extremities no clubbing cyanosis, nor edema appreciated bilaterally Diagnostic Data Last Recorded Lab Results: 01/01/25 0345 01/01/25 0707 Advance Care Planning Advanced Care plannin - 30 Minutes Problems: (1) UTI (urinary tract infection) Status: Acute Additional Plan # severely uncontrolled diabetes mellitus I informed the patient that he will need to be on insulin when discharged On a high dose sliding scale insulin, 20 units of Lantus at night and 7 units of Lantus with each meal. 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 # kidney with possible RIOS present on admission Daily CMP is ordered to monitor renal function # DVT and stroke prophylaxis SCDs Tyrell I spent a total of 17 minutes on reviewing various resuscitative measures/ ACP with the patient at the time of admission. The patient has decided on a full code status Date of Service: Jan 01, 2025 Billing Provider: YAHAIRA CHOW DO Common Visit Codes: [id number] INP/OBS CARE (HIGH) Secondary Visit Codes: [id number] CARE PLAN 30 MINUTES YAHAIRA CHOW DO Jan 01, 2025 18:35
[2025-01-01] MEDS: K and/or MAG REPLACEMENT MC SCH (19:20)
[2025-01-01] MEDS: insulin glargine (Lantus) pen - multi-dose SQ SCH (21:25)
[2025-01-01 22:00] VITALS: BP 123/59; PULSE 102; RESP 16; TEMP 98.7; O2SAT 94
[2025-01-02 06:00] VITALS: BP 122/61; PULSE 95; RESP 18; TEMP 98.8; O2SAT 94
[2025-01-02 06:37] LABS: BASOPHILS % (AUTO) 0.4 % (0-1); EOSINOPHILS # (AUTO) 0.2 X10'3 (0-0.9); HEMATOCRIT 34.2 % (42.0-52.0); HEMOGLOBIN 11.7 g/dl (14.0-17.9); LYMPHOCYTES % (AUTO) 21.1 % (21-51); MEAN CORPUSCULAR HEMOGLOBIN 30.3 PG (27.0-31.0); MEAN CORPUSCULAR HGB CONC 34.2 g/dL (33.0-36.5); MEAN CORPUSCULAR VOLUME 88.6 FL (78-98); MEAN PLATELET VOLUME 7.3 FL (7.4-10.4); MONOCYTES % (AUTO) 10.6 % (2-12); NEUTROPHILS # (AUTO) 6.1 X10'3 (1.8-7.7); NEUTROPHILS % (AUTO) 65.9 % (42-75); PLATELET COUNT 191 X10'3 (140-440); RED BLOOD COUNT 3.87 X10'6 (4.70-6.10); RED CELL DISTRIBUTION WIDTH 13.6 % (11.5-14.5); WHITE BLOOD COUNT 9.2 X10'3 (4.5-11.0)
[2025-01-02 06:55] LABS: ALANINE AMINOTRANSFERASE 13 U/L (12-78); ALBUMIN 2.6 G/DL (3.4-5.0); ALBUMIN/GLOBULIN RATIO 0.8 (1.1-1.5); ALKALINE PHOSPHATASE 64 IU/L (46-116); ANION GAP 4 (8-16); ASPARTATE AMINO TRANSFERASE 15 U/L (10-37); BILIRUBIN,TOTAL 0.4 MG/DL (0.1-1.0); BLOOD UREA NITROGEN 16 MG/DL (7-18); BUN/CREATININE RATIO 19.3 (10.0-20.0); CALCIUM 7.6 MG/DL (8.5-10.1); CHLORIDE 107 MMOL/L (99-107); CREATININE 0.83 MG/DL (0.60-1.10); GLUCOSE 138 MG/DL (70-104); MAGNESIUM 1.8 MG/DL (1.5-2.4); POTASSIUM 3.5 MMOL/L (3.5-5.1); SODIUM 141 MMOL/L (135-145); TOTAL CARBON DIOXIDE 29.6 MMOL/L (24-32); TOTAL PROTEIN 5.9 G/DL (6.4-8.2); eCRCL 83 ML/MIN; eGFR 90 ML/MIN
[2025-01-02] MEDS: CefTRIAXone/D5W-Rocephin 1gm 50 ML IV SCH (08:31)
[2025-01-02] MEDS: rivaroxaban 20mg tablet PO SCH (08:31)
[2025-01-02] MEDS: pantoprazole 40mg Tablet.DR PO SCH (08:31)
[2025-01-02] MEDS: bisacodyl 10mg suppository rectal RC PRN (08:34)
[2025-01-02 10:00] VITALS: RESP 18; O2SAT 94
[2025-01-02 11:00] VITALS: BP 151/83; PULSE 114; RESP 16; TEMP 98.7; O2SAT 93
--- NOTE | 2025-01-02 11:07 | RADIOLOGY REPORT ---
ABDOMEN X-RAY: 1 view(s) was obtained HISTORY: Reeval stool burden load COMPARISON: None. FINDINGS: Mild stool burden. Non obstructive bowel gas pattern. Surgical clips project over the left groin. 3 c ephalic screws in the left proximal femur. IMPRESSION: 1. Reduced rectal and distal colonic stool burden when compared to 1 day prior
[2025-01-02] MEDS: ondansetron/PF 4mg/2ml inj IV PRN (11:38)
[2025-01-02] MEDS: proCHLORperazine 10 MG/2 ml inj IV PRN (13:24)
[2025-01-02] MEDS: normal saline 1000ml 1,000 ML IV SCH (15:40)
[2025-01-02] MEDS: metoclopramide 5 mg/ml inj IV PRN (16:07)
[2025-01-02] MEDS: morphine 2 MG/ML inj. syringe IV PRN (17:27)
[2025-01-02 18:00] VITALS: BP 137/68; PULSE 111; RESP 20; TEMP 98.5; O2SAT 93
--- NOTE | 2025-01-02 20:54 | PROGRESS NOTE ---
Daily Progress Note Providers to CC ~ Antibiotic Timeout Antibiotic Ordered?: Yes Subjective The patient has had multiple episodes of emesis today I tried Compazine which only helped for about 2 hours and then the patient received metoclopramide IV which also only help for a brief interval, the patient had some mild abdominal distention however has a abdominal exam was not impressive. I did inform the patient that he may have to have an NG-tube placed if he continues to vomit and at that juncture I will order a CT scan with the overnight oral contrast prep Objective Vital Signs Date Time Temp Pulse Resp B/P (MAP) Pulse Ox O2 Delivery O2 Flow Rate FiO2 01/02/25 18:00 98.5 111 20 137/68 (91) 93 Nasal Cannula 2.0 Result Diagram: 01/02/2553801/02/25538 Gen. No acute distress alert and oriented 4 Lungs clear to ascultation bilaterally, no wheezes rales or rhonchi appreciated Heart normal sinus rhythm no murmurs rubs or clicks noted Abdomen soft, mildly distended, mild generalized tenderness. bowel sounds are normoactive Lower extremities no clubbing cyanosis, nor edema appreciated bilaterally Problem\Assessment\Plan Problems/Diagnosis: (1) UTI (urinary tract infection) # severely uncontrolled diabetes mellitus I informed the patient that he will need to be on insulin when discharged On a high dose sliding scale insulin, 20 units of Lantus at night and 7 units of Lantus with each meal. 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 # kidney with possible RIOS present on admission Daily CMP is ordered to monitor renal function # intractable nausea and vomiting IV Zofran, IV Compazine, IV metoclopramide all has been only helpful transiently If the patient continues to vomit will place an eye NG tube and order a CT scan of the abdomen pelvis with the overnight oral contrast prep # DVT and stroke prophylaxis SCDs Xarelto Date of Service: Jan 02, 2025 Billing Provider: YAHAIRA CHOW DO Common Visit Codes: [id number] INP/OBS CARE(HIGH) YAHAIRA CHOW DO Jan 02, 2025 20:54
[2025-01-02 22:00] VITALS: BP 126/61; PULSE 111; RESP 16; TEMP 98.5; O2SAT 97
[2025-01-03] MEDS: HYDROcodone/acetaminophen 5mg/325mg tablet PO PRN (00:59)
[2025-01-03] MEDS: HYDROcodone/acetaminophen 10/325mg tab PO PRN (05:09)
[2025-01-03 06:00] VITALS: BP 136/61; PULSE 85; RESP 16; TEMP 98; O2SAT 97
[2025-01-03 06:04] LABS: BASOPHILS % (AUTO) 0.2 % (0-1); EOSINOPHILS # (AUTO) 0.1 X10'3 (0-0.9); EOSINOPHILS % (AUTO) 1.2 % (0-6); HEMATOCRIT 34.9 % (42.0-52.0); HEMOGLOBIN 11.8 g/dl (14.0-17.9); LYMPHOCYTES # (AUTO) 1.8 X10'3 (1.1-4.8); LYMPHOCYTES % (AUTO) 17.7 % (21-51); MEAN CORPUSCULAR HEMOGLOBIN 30.2 PG (27.0-31.0); MEAN CORPUSCULAR HGB CONC 33.9 g/dL (33.0-36.5); MEAN CORPUSCULAR VOLUME 89.3 FL (78-98); MEAN PLATELET VOLUME 7.5 FL (7.4-10.4); MONOCYTES # (AUTO) 1.2 X10'3 (0-0.9); MONOCYTES % (AUTO) 11.1 % (2-12); NEUTROPHILS # (AUTO) 7.2 X10'3 (1.8-7.7); NEUTROPHILS % (AUTO) 69.8 % (42-75); PLATELET COUNT 189 X10'3 (140-440); RED BLOOD COUNT 3.92 X10'6 (4.70-6.10); WHITE BLOOD COUNT 10.3 X10'3 (4.5-11.0)
[2025-01-03 06:33] LABS: ALANINE AMINOTRANSFERASE 15 U/L (12-78); ALBUMIN 2.5 G/DL (3.4-5.0); ALBUMIN/GLOBULIN RATIO 0.7 (1.1-1.5); ALKALINE PHOSPHATASE 60 IU/L (46-116); ANION GAP 4 (8-16); ASPARTATE AMINO TRANSFERASE 16 U/L (10-37); BILIRUBIN,TOTAL 0.4 MG/DL (0.1-1.0); BLOOD UREA NITROGEN 17 MG/DL (7-18); BUN/CREATININE RATIO 21.5 (10.0-20.0); CALCIUM 7.7 MG/DL (8.5-10.1); CHLORIDE 106 MMOL/L (99-107); CREATININE 0.79 MG/DL (0.60-1.10); GLUCOSE 119 MG/DL (70-104); MAGNESIUM 1.8 MG/DL (1.5-2.4); POTASSIUM 3.4 MMOL/L (3.5-5.1); SODIUM 141 MMOL/L (135-145); TOTAL CARBON DIOXIDE 30.9 MMOL/L (24-32); eCRCL 87 ML/MIN; eGFR > 90 ML/MIN
[2025-01-03] MEDS: diatr meglu/diatrizoate 30ml oral sol.-(3 dose) bottle PO SCH (10:19)
[2025-01-03 11:00] VITALS: BP 124/56; PULSE 78; RESP 19; TEMP 97.1; O2SAT 98
[2025-01-03 18:00] VITALS: BP 125/57; PULSE 80; RESP 18; TEMP 98.6; O2SAT 98
--- NOTE | 2025-01-03 18:54 | PROGRESS NOTE ---
Daily Progress Note Providers to CC ~ Antibiotic Timeout Antibiotic Ordered?: Yes Subjective Patient continued to vomit last evening and NG tube was placed another 500 cc w ere drained a CT scan of the abdomen and pelvis with the quick oral contrast prep is obtained awaiting the radiology read Objective Vital Signs Date Time Temp Pulse Resp B/P (MAP) Pulse Ox O2 Delivery O2 Flow Rate FiO2 01/03/25 14:00 Nasal Cannula 2.0 01/03/25 11:00 97.1 78 19 124/56 (13) 98 Result Diagram: 01/03/2541801/03/25 0416 Gen. No acute distress alert and oriented 4 Lungs clear to ascultation bilaterally, no wheezes rales or rhonchi appreciated Heart normal sinus rhythm no murmurs rubs or clicks noted Abdomen soft, mildly distended, mild generalized tenderness. bowel sounds are normoactive Lower extremities no clubbing cyanosis, nor edema appreciated bilaterally Problem\Assessment\Plan Problems/Diagnosis: (1) UTI (urinary tract infection) # severely uncontrolled diabetes mellitus I informed the patient that he will need to be on insulin when discharged On a high dose sliding scale insulin, 20 units of Lantus at night and 7 units of Lantus with each meal. 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 # kidney with possible RIOS present on admission Daily CMP is ordered to monitor renal function # intractable nausea and vomiting IV Zofran, IV Compazine, IV metoclopramide all has been only helpful transiently If the patient continues to vomit will place an eye NG tube and order a CT scan of the abdomen pelvis with the overnight oral contrast prep 01/03 Patient continued to vomit last evening and NG tube was placed another 500 cc were drained a CT scan of the abdomen and pelvis with the quick oral contrast prep is obtained awaiting the radiology read # DVT and stroke prophylaxis SCDs Xarelto Date of Service: Jan 03, 2025 Billing Provider: YAHAIRA CHOW DO Common Visit Codes: [id number] INP/OBS CARE(HIGH) YAHAIRA CHOW DO Jan 03, 2025 18:54
[2025-01-03] MEDS: rivaroxaban 20mg tablet PO SCH (19:12)
[2025-01-03] MEDS: potassium Cl 20 mEq SR tablet PO PRN ×2 (19:13→23:37)
[2025-01-03 20:00] VITALS: RESP 17; O2SAT 98
--- NOTE | 2025-01-03 20:52 | RADIOLOGY REPORT ---
Exam: CT CT ABDOMEN PELVIS W/ ORAL CONTRAST History: emesis requiring NG tube Comparison Study: CT CT ABDOMEN PELVIS W/ IV CONTRAST on DOS: 01/01/25 Technique: Multidetector spiral CT of the abdomen was performed from lung bases to pubic symphysis. I maging was performed without IV contrast. Axial, coronal and sagittal multiplanar reformats were obta ined from the axial data set by the technologist. Radiation Dose : 1. Abdomen/Pelvis: CTDIvol 16.3 mGy, DLP 866 mGy*cm. Findings: Evaluation of solid organs is limited due to lack of intravenous contrast use. Lung Bases: Small bilateral pleural effusions. Liver: The liver is normal in size. No focal lesions. Gallbladder and Biliary Tree: Unremarkable Spleen: Unremarkable Pancreas: The pancreas is grossly normal in appearance. Adrenal Glands: Unremarkable Kidneys: Kidneys are grossly normal without calculi or hydronephrosis. Bladder: Bladder is decompressed with a Pink catheter and cannot be adequately assessed. Bowel: The stomach is grossly normal in appearance. Moderate stool in the rectum with mild thickening of the rectal wall. The appendix is not visualized; however, no secondary findings of acute appendic itis identified. Ascites: Absent Lymphadenopathy: No mesenteric, retroperitoneal or periportal lymphadenopathy. Abdominal Wall and Mesentery: Unremarkable. Vasculature: The visualized abdominal aorta is normal in size and caliber. Evaluation of abdominal a nd pelvic vessels is limited due to lack of intravenous contrast. Pelvic Organs: Unremarkable Musculoskeletal: No aggressive focal bony lesions, acute fractures or dislocation. Degenerative kendall es of the spine. IMPRESSION: Moderate volume stool in the rectum with associated bowel wall thickening. Findings may represent marixa rcoral colitis. Clinical correlation advised. Otherwise, no acute abdominopelvic findings. Small bilateral pleural effusions.
[2025-01-03] MEDS: magnesium hydroxide 30ml (MOM) UD suspension PO PRN (21:48)
[2025-01-03 22:00] VITALS: BP 139/63; PULSE 78; RESP 14; TEMP 98.8; O2SAT 98
[2025-01-04 04:25] LABS: BASOPHILS # (AUTO) 0.1 X10'3 (0-0.2); BASOPHILS % (AUTO) 0.6 % (0-1); EOSINOPHILS # (AUTO) 0.2 X10'3 (0-0.9); EOSINOPHILS % (AUTO) 2.6 % (0-6); HEMATOCRIT 31.5 % (42.0-52.0); HEMOGLOBIN 10.8 g/dl (14.0-17.9); LYMPHOCYTES # (AUTO) 1.9 X10'3 (1.1-4.8); LYMPHOCYTES % (AUTO) 20.1 % (21-51); MEAN CORPUSCULAR HEMOGLOBIN 30.6 PG (27.0-31.0); MEAN CORPUSCULAR HGB CONC 34.1 g/dL (33.0-36.5); MEAN CORPUSCULAR VOLUME 89.6 FL (78-98); MEAN PLATELET VOLUME 6.9 FL (7.4-10.4); MONOCYTES % (AUTO) 10.9 % (2-12); NEUTROPHILS # (AUTO) 6.1 X10'3 (1.8-7.7); NEUTROPHILS % (AUTO) 65.8 % (42-75); PLATELET COUNT 159 X10'3 (140-440); RED BLOOD COUNT 3.52 X10'6 (4.70-6.10); RED CELL DISTRIBUTION WIDTH 13.5 % (11.5-14.5); WHITE BLOOD COUNT 9.3 X10'3 (4.5-11.0)
[2025-01-04 04:44] LABS: ALANINE AMINOTRANSFERASE 13 U/L (12-78); ALBUMIN 2.1 G/DL (3.4-5.0); ALKALINE PHOSPHATASE 56 IU/L (46-116); ANION GAP 2 (8-16); ASPARTATE AMINO TRANSFERASE 14 U/L (10-37); BILIRUBIN,TOTAL 0.3 MG/DL (0.1-1.0); BLOOD UREA NITROGEN 11 MG/DL (7-18); BUN/CREATININE RATIO 15.5 (10.0-20.0); CALCIUM 7.8 MG/DL (8.5-10.1); CHLORIDE 108 MMOL/L (99-107); CREATININE 0.71 MG/DL (0.60-1.10); GLUCOSE 109 MG/DL (70-104); MAGNESIUM 1.8 MG/DL (1.5-2.4); POTASSIUM 4.3 MMOL/L (3.5-5.1); SODIUM 141 MMOL/L (135-145); TOTAL CARBON DIOXIDE 31.1 MMOL/L (24-32); eCRCL 97 ML/MIN; eGFR > 90 ML/MIN
[2025-01-04 04:46] LABS: ALBUMIN/GLOBULIN RATIO 0.6 (1.1-1.5); TOTAL PROTEIN 5.5 G/DL (6.4-8.2)
[2025-01-04 06:00] VITALS: BP 132/61; PULSE 76; RESP 14; TEMP 98.9; O2SAT 94
[2025-01-04 07:30] VITALS: RESP 14; O2SAT 94
[2025-01-04] MEDS: mineral oil 133ml enema RC PRN (09:15)
[2025-01-04 10:00] VITALS: BP 140/58; PULSE 76; RESP 18; TEMP 97.9; O2SAT 93
[2025-01-04] MEDS: lactulose 20gm/30ml cup PO SCH (13:20)
--- NOTE | 2025-01-04 15:56 | PROGRESS NOTE ---
Daily Progress Note Providers to CC ~ Antibiotic Timeout Antibiotic Ordered?: Yes Subjective The patient's CT scan of the abdomen and pelvis with the quick oral contrast prep demonstrated stercoral colitis thus added multiple medications including one time mineral oil enema Lopez flush enema and Mag citrate Objective Vital Signs Date Time Temp Pulse Resp B/P (MAP) Pulse Ox O2 Delivery O2 Flow Rate FiO2 01/04/25 10:00 97.9 76 18 140/58 (85) 93 Room Air 01/04/25 07:30 1.0 Result Diagram: 01/04/2541001/04/25410 Gen. No acute distress alert and oriented 4 Lungs clear to ascultation bilaterally, no wheezes rales or rhonchi appreciated Heart normal sinus rhythm no murmurs rubs or clicks noted Abdomen soft, mildly distended, mild generalized tenderness. bowel sounds are normoactive Lower extremities no clubbing cyanosis, nor edema appreciated bilaterally Problem\Assessment\Plan Problems/Diagnosis: (1) UTI (urinary tract infection) # severely uncontrolled diabetes mellitus I informed the patient that he will need to be on insulin when discharged On a high dose sliding scale insulin, 20 units of Lantus at night and 7 units of Lantus with each meal. 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 # kidney with possible RIOS present on admission Daily CMP is ordered to monitor renal function Resolved # intractable nausea and vomiting IV Zofran, IV Compazine, IV metoclopramide all has been only helpful transiently If the patient continues to vomit will place an eye NG tube and order a CT scan of the abdomen pelvis with the overnight oral contrast prep 01/03 Patient continued to vomit last evening and NG tube was placed another 500 cc were drained a CT scan of the abdomen and pelvis with the quick oral contrast prep is obtained awaiting the radiology read 01/[address] scan demonstrated stercoral colitis- daily KUB, one time mineral oil enema and daily prn mineral oil enemas, Lopez flush enema x1, Mag citrate # DVT and stroke prophylaxis SCDs Xarelto Date of Service: Jan 04, 2025 Billing Provider: YAHAIRA CHOW DO Common Visit Codes: [id number] INP/OBS CARE(HIGH) YAHAIRA CHOW DO Jan 04, 2025 15:56
[2025-01-04] MEDS: magnesium citrate 296ml oral solution PO ONE (16:50)
[2025-01-04] MEDS: mineral oil 133ml enema RC ONE (16:51)
[2025-01-04] MEDS: levoFLOXACIN-Levaquin 500mg/D5 100 ML IV ONE (16:51)
[2025-01-04 18:00] VITALS: BP 129/52; PULSE 70; RESP 16; TEMP 98.1; O2SAT 95
[2025-01-04 22:00] VITALS: BP 149/70; PULSE 72; RESP 16; TEMP 96.3; O2SAT 93
[2025-01-05 04:19] LABS: BASOPHILS % (AUTO) 0.3 % (0-1); EOSINOPHILS # (AUTO) 0.2 X10'3 (0-0.9); EOSINOPHILS % (AUTO) 2.4 % (0-6); HEMATOCRIT 30.3 % (42.0-52.0); HEMOGLOBIN 10.3 g/dl (14.0-17.9); LYMPHOCYTES # (AUTO) 1.6 X10'3 (1.1-4.8); LYMPHOCYTES % (AUTO) 25.5 % (21-51); MEAN CORPUSCULAR HEMOGLOBIN 30.5 PG (27.0-31.0); MEAN CORPUSCULAR VOLUME 89.8 FL (78-98); MEAN PLATELET VOLUME 7.3 FL (7.4-10.4); MONOCYTES # (AUTO) 0.8 X10'3 (0-0.9); MONOCYTES % (AUTO) 12.1 % (2-12); NEUTROPHILS # (AUTO) 3.9 X10'3 (1.8-7.7); NEUTROPHILS % (AUTO) 59.7 % (42-75); PLATELET COUNT 159 X10'3 (140-440); RED BLOOD COUNT 3.37 X10'6 (4.70-6.10); RED CELL DISTRIBUTION WIDTH 13.7 % (11.5-14.5); WHITE BLOOD COUNT 6.5 X10'3 (4.5-11.0)
[2025-01-05 04:32] LABS: ANION GAP 7 (8-16); BILIRUBIN,TOTAL 0.3 MG/DL (0.1-1.0); BLOOD UREA NITROGEN 9 MG/DL (7-18); BUN/CREATININE RATIO 13.2 (10.0-20.0); CALCIUM 7.8 MG/DL (8.5-10.1); CHLORIDE 107 MMOL/L (99-107); CREATININE 0.68 MG/DL (0.60-1.10); GLUCOSE 124 MG/DL (70-104); MAGNESIUM 1.8 MG/DL (1.5-2.4); POTASSIUM 3.8 MMOL/L (3.5-5.1); SODIUM 143 MMOL/L (135-145); TOTAL CARBON DIOXIDE 29.2 MMOL/L (24-32); TOTAL PROTEIN 5.3 G/DL (6.4-8.2); eCRCL 101 ML/MIN; eGFR > 90 ML/MIN
[2025-01-05 04:33] LABS: ALANINE AMINOTRANSFERASE 12 U/L (12-78); ALBUMIN/GLOBULIN RATIO 0.6 (1.1-1.5); ALKALINE PHOSPHATASE 57 IU/L (46-116); ASPARTATE AMINO TRANSFERASE 11 U/L (10-37)
[2025-01-05 06:00] VITALS: BP 130/56; PULSE 57; RESP 16; TEMP 96.6; O2SAT 95
--- NOTE | 2025-01-05 08:22 | RADIOLOGY REPORT ---
Exam: DI ABDOMEN,SINGLE VIEW(KUB) Indication: Re-evaluate stool burden load-- stercoral colitis Comparison: DI ABDOMEN,SINGLE VIEW(KUB) on DOS: 01/02/25 Technique: 3 radiographic views of the abdomen. Findings: Moderate volume colonic stool. Nonobstructive bowel gas pattern noted. There is no definite evidence for pneumoperitoneum. No abnormal calcifications noted. Impression: Nonobstructive bowel gas pattern noted. Moderate volume colonic stool.
[2025-01-05 10:00] VITALS: BP 167/72; PULSE 84; RESP 18; TEMP 97.5; O2SAT 93
[2025-01-05] MEDS: levoFLOXACIN-Levaquin 500mg/D5 100 ML IV SCH (10:11)
[2025-01-05] MEDS ORDERED: NEED-136 SUBCUT (13:38)
[2025-01-05] MEDS ORDERED: HYDR-3972 PO (13:38)
[2025-01-05] MEDS ORDERED: INSU100I31 SQ (13:38)
[2025-01-05] MEDS ORDERED: RIVA20TA PO (13:38)
[2025-01-05] MEDS ORDERED: OMEP40CA21 PO (13:38)
[2025-01-05] MEDS ORDERED: LEVO-65 PO (13:42)
[2025-01-05 18:00] VITALS: BP 165/67; PULSE 76; RESP 18; TEMP 98.2; O2SAT 95
--- NOTE | 2025-01-05 19:46 | PROGRESS NOTE ---
Daily Progress Note Providers to CC ~ Antibiotic Timeout Antibiotic Ordered?: Yes Subjective The patient was cleared to be discharged today his repeat KUB demonstrated moderate stool burden and the patient has had multiple bowel movements I have stopped lactulose- written for 20 units of Lantus at night and home health has been ordered as the patient wanted to go home with a Pink catheter. The patient was discharged however the patient is daughter is not able to be reached and thus the patient remains hospitalized. Objective Vital Signs Date Time Temp Pulse Resp B/P (MAP) Pulse Ox O2 Delivery O2 Flow Rate FiO2 01/05/25 10:12 Room Air 01/05/25 10:00 97.5 84 18 167/72 (103) 93 01/04/25 07:30 1.0 Result Diagram: 01/05/25 0358 01/05/25 0358 Gen. No acute distress alert and oriented 4 Lungs clear to ascultation bilaterally, no wheezes rales or rhonchi appreciated Heart normal sinus rhythm no murmurs rubs or clicks noted Abdomen soft, mildly distended, mild generalized tenderness. bowel sounds are normoactive Lower extremities no clubbing cyanosis, nor edema appreciated bilaterally Problem\Assessment\Plan Problems/Diagnosis: (1) UTI (urinary tract infection) # severely uncontrolled diabetes mellitus I informed the patient that he will need to be on insulin when discharged On a high dose sliding scale insulin, 20 units of Lantus at night and 7 units of Lantus with each meal. 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 # RIOS present on admission Daily CMP is ordered to monitor renal function Resolved # intractable nausea and vomiting IV Zofran, IV Compazine, IV metoclopramide all has been only helpful transiently If the patient continues to vomit will place an eye NG tube and order a CT scan of the abdomen pelvis with the overnight oral contrast prep 01/03 Patient continued to vomit last evening and NG tube was placed another 500 cc were drained a CT scan of the abdomen and pelvis with the quick oral contrast prep is obtained awaiting the radiology read 01/[address] scan demonstrated stercoral colitis- daily KUB, one time mineral oil enema and daily prn mineral oil enemas, Lopez flush enema x1, Mag citrate 01/04 patient has had multiple bowel movements and lactulose was discontinued # DVT and stroke prophylaxis SCDs Xarelto Disposition: The patient was discharged home with home health today however the patient's daughter is not able to be reached and thus the patient will remain hospitalized Date of Service: Jan 05, 2025 Billing Provider: YAHAIRA CHOW DO Common Visit Codes: [id number] INP/OBS CARE(HIGH) YAHAIRA CHOW DO Jan 05, 2025 19:46
[2025-01-05 22:00] VITALS: BP 163/74; PULSE 75; RESP 18; TEMP 98.3; O2SAT 94
[2025-01-06 04:41] LABS: BASOPHILS % (AUTO) 0.4 % (0-1); EOSINOPHILS # (AUTO) 0.2 X10'3 (0-0.9); EOSINOPHILS % (AUTO) 3.5 % (0-6); HEMOGLOBIN 11.9 g/dl (14.0-17.9); LYMPHOCYTES # (AUTO) 1.8 X10'3 (1.1-4.8); LYMPHOCYTES % (AUTO) 27.4 % (21-51); MEAN CORPUSCULAR HEMOGLOBIN 30.3 PG (27.0-31.0); MEAN CORPUSCULAR VOLUME 89.1 FL (78-98); MEAN PLATELET VOLUME 7.2 FL (7.4-10.4); MONOCYTES # (AUTO) 0.8 X10'3 (0-0.9); MONOCYTES % (AUTO) 11.8 % (2-12); NEUTROPHILS # (AUTO) 3.8 X10'3 (1.8-7.7); NEUTROPHILS % (AUTO) 56.9 % (42-75); PLATELET COUNT 205 X10'3 (140-440); RED BLOOD COUNT 3.93 X10'6 (4.70-6.10); RED CELL DISTRIBUTION WIDTH 13.4 % (11.5-14.5); WHITE BLOOD COUNT 6.6 X10'3 (4.5-11.0)
[2025-01-06 05:01] LABS: ALANINE AMINOTRANSFERASE 15 U/L (12-78); ALBUMIN 2.2 G/DL (3.4-5.0); ALBUMIN/GLOBULIN RATIO 0.6 (1.1-1.5); ALKALINE PHOSPHATASE 66 IU/L (46-116); ANION GAP 5 (8-16); ASPARTATE AMINO TRANSFERASE 12 U/L (10-37); BILIRUBIN,TOTAL 0.4 MG/DL (0.1-1.0); BLOOD UREA NITROGEN 6 MG/DL (7-18); CALCIUM 8.2 MG/DL (8.5-10.1); CHLORIDE 106 MMOL/L (99-107); CREATININE 0.67 MG/DL (0.60-1.10); GLUCOSE 104 MG/DL (70-104); MAGNESIUM 1.9 MG/DL (1.5-2.4); POTASSIUM 3.6 MMOL/L (3.5-5.1); SODIUM 140 MMOL/L (135-145); TOTAL CARBON DIOXIDE 28.6 MMOL/L (24-32); TOTAL PROTEIN 6.1 G/DL (6.4-8.2); eCRCL 103 ML/MIN; eGFR > 90 ML/MIN
[2025-01-06 06:00] VITALS: BP 163/72; PULSE 73; RESP 18; TEMP 98.4; O2SAT 94
[2025-01-06 08:20] VITALS: RESP 16
--- NOTE | 2025-01-06 08:59 | RADIOLOGY REPORT ---
Exam: DI ABDOMEN,SINGLE VIEW(KUB) Indication: Re-evaluate stool burden load-- stercoral colitis Comparison: DI ABDOMEN,SINGLE VIEW(KUB) on DOS: 01/05/25, DI ABDOMEN,SINGLE VIEW(KUB) on DOS: 01/02/25 Technique: 2 radiographic views of the abdomen. Findings: Enteric contrast is present in the colon. Nonobstructive bowel gas pattern noted. There is no definite evidence for pneumoperitoneum. No abnormal calcifications noted. Impression: Interval decrease in stool burden. Enteric contrast is present in the colon.
[2025-01-26] MEDS ORDERED: LANTUS SQ (07:26)
[2025-01-26] MEDS ORDERED: CIPR-202 PO (07:26)
[2025-01-26] MEDS ORDERED: INSU100I8 SQ (07:26)
[2025-01-26] MEDS ORDERED: ATOR20TA PO (07:26)
[2025-01-26] MEDS ORDERED: LISI5TAB22 PO (07:26)
--- NOTE | 2025-02-09 11:53 | DISCHARGE SUMMARY ---
Discharge Summary Providers to CC ~ Discharge Summary Admission Diagnosis: UTI, uncontrolled DM Hospital Course DATE OF ADMISSION: 01/01/2025 DATE OF DISCHARGE: 01/06/2025 Discharge Diagnosis\\Comment: Diabetes out of control UTI nephrolithiasis hydronephrosis cystic lesion on the pancreas Operations\\Procedures: None Consultants: None Complications: None Condition on DC: Stable New Medications: [place], Insulin Disposable (Bd Ultra-Fine Pen Needle) 31 Gauge X 5/16" Dis.needle SYR SUBCUT DAILY, #90 0 Refills Hydrocodone Bit/Acetaminophen (Hydrocodon-Acetaminophn 10-325 tablet) 10mg- 325mg Tablet 1 TAB PO Q8H PRN for SEVERE PAIN 7-10, #20 TAB Continued Medications: Omeprazole (Prilosec) 40 Mg Capsule 1 CAP PO DAILY, #30 CAP (This prescription has been renewed) Rivaroxaban (Xarelto) 20 Mg Tablet 1 TAB PO DAILY, #30 TAB 0 Refills (This prescription has been renewed) with food Discharge Summary: History of Present Illness This is a 71-year-old male who presents to the ED with of lower abdominal pain for a couple of weeks and has been very constipated he has also has a urinary retention for a couple of days and has been very noncompliant with his medications he stopped taken his diabetic medication and his Xarelto which he is chronically on for DVTs prior PE. On arrival to the hospital labs were drawn and the patient's hemoglobin A1c is 11.9 in his blood fingerstick blood glucose was 439 with a normal anion gap and a normal serum bicarb the patient also has significant pyuria suggestive of a UTI though has a normal white blood cell count. A CTA of the abdomen and pelvis was obtained that demonstrates mild right hydro ureter with parents nephric fat stranding which could represent a recent passed kidney stone as well as trace left hydronephrosis. 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 The patient is on a high dose sliding scale insulin 20 units of Lantus is ordered and 7 units of lispro with meals. Also urine culture and IV Rocephin has been administered and ordered daily Hospital course patient is a pleasant 71-year-old that came with abdominal pain patient was noted to be constipated and having urinary retention Pink catheter was placed patient's seems to be very noncompliant with his diet diabetic medications. Patient was started on IV antibiotics after he was pancultured in the ER. Patient has left hydronephrosis from a recent kidney stone that he passed. He has urinary tract infection improved on antibiotics. His diabetes was controlled with insulin but he says he ran out of needles and these were given to him at the time of discharge patient was advised for close follow up with the PCP. For also an MRI and a further workup on the cystic lesion on his pancreas to rule out IPMN *Problems/Diagnosis: (1) UTI (urinary tract infection) Status: Acute Total Time Spent on D/C: > 30 Minutes Date of Service: Jan 06, 2025 Billing Provider: OMERO ELLER MD Common Visit Codes: [id number] DISCH DAY >30min OMERO ELLER MD Feb 09, 2025 11:53
== END 2025-01-06 09:50 | disposition home health service (06) | DRG 637 ==
LOC: ER 03:18 → ED HOLD 12:09 → SUR 3N 14:50
PROVIDERS: ADMIT Family Medicine; ATTEND Family Medicine
PROC: BW211ZZ Computerized Tomography (CT Scan) of Abdomen and Pelvis using Low Osmolar Contrast (ICD-10-PCS; principal; 2025-01-01)
PROC: BW211ZZ Computerized Tomography (CT Scan) of Abdomen and Pelvis using Low Osmolar Contrast (ICD-10-PCS; 2025-01-03)
DX: E11.65 Type 2 diabetes mellitus with hyperglycemia (principal); N17.0 Acute kidney failure with tubular necrosis; N30.01 Acute cystitis with hematuria; I10 Essential (primary) hypertension; K21.9 Gastro-esophageal reflux disease without esophagitis; E11.51 Type 2 diabetes mellitus with diabetic peripheral angiopathy without gangrene; K59.00 Constipation, unspecified; Z91.011 Allergy to milk products; Z79.01 Long term (current) use of anticoagulants; Z79.899 Other long term (current) drug therapy; Z86.711 Personal history of pulmonary embolism; Z87.11 Personal history of peptic ulcer disease; Z91.148 Patient's other noncompliance with medication regimen for other reason
CPT/HCPCS: 36415; 74018; 74019; 74176; 74177; 80053; 81001; 82948; 83036; 83605; 83690; 83735; 84484; 85025; 87040; 87077; 87081; 87088; 87186; 93005; 96365; 99285; A4314; A4340; A4615; A6213; A6258; A6260; G0378; J0696; J0780; J1200; J1815; J1956; J2270; J2405; J2765; J3490; J7030; Q9963; Q9967

== ENCOUNTER 2025-03-07 13:34 | Emergency (ER) | payer MEDICARE, MEDICAID ==
[~2025-03-07] VITALS: Ht 185.4 cm; Wt 104.5 kg
[~2025-03-07 13:34] MED LIST changes: +HYDR-3972 PO; +INSU100I8 SQ; +LANTUS SQ; +LISI5TAB22 PO; +NEED-136 SUBCUT
[2025-03-07 13:41] VITALS: BP 132/78; PULSE 107; O2SAT 99
--- NOTE | 2025-03-07 14:38 | RADIOLOGY REPORT ---
CLINICAL INDICATION: HIP PAIN AFTER FALL TECHNIQUE: AP view of the pelvis and AP and frogleg lateral views of the left hip were performed. DI HIP UNILATERAL 2 VIEWS Comparison: DI HIP UNILATERAL 2 VIEWS on DOS: 09/04/24, DI HIP UNILATERAL 2 VIEWS on DOS: 09/04/24, CT CT LOWER EXTREMITY on DOS: 09/03/24, DI FEMUR 2 VIEWS on DOS: 09/02/24, DI PELVIS,LIMITED 1-2 VIEWS on DOS: 09/02/24 FINDINGS/IMPRESSION: 1. No acute fracture of the pelvis or hips. 2. Postoperative changes of left femoral neck percutaneous pinning re-identified. Surgical clips are re-identified in the left inguinal region. 3. Advanced lower lumbar degenerative disc disease, not fully imaged here.
[2025-03-07] MEDS: HYDROcodone/acetaminophen 10/325mg tab PO STA (16:31)
--- NOTE | 2025-03-07 16:32 | Physician Documentation ---
History of Present Illness ~ Chief Complaint: Hip pain Stated Complaint: LEG PAIN Time Seen by MD: 16:17 Primary Medical Doctor: Dr. Hidalgo HPI Patient is seen today with complaints of left-sided hip pain after he slipped and fell onto his left hip and left side. Patient denies any pain in his upper extremities or any other pain in his lower extremities. He states he sometimes takes Elsa 10s for pain in his requesting some of those today. Patient has no other concern or complaint at this time. Medication Reconciliation Allergies: Uncoded Allergies: lactose (milk) (Adverse Reaction, Unknown, 09/06/24) Scheduled Insulin Glargine,Hum.rec.anlog* (Lantus*), 20 UNIT SQ HS Insulin Lispro (Humalog), 0 UNIT SQ ACHS Lisinopril (Lisinopril), 1 TAB PO DAILY Omeprazole (Prilosec), 1 CAP PO DAILY Rivaroxaban (Xarelto), 1 TAB PO DAILY Scheduled PRN Hydrocodone Bit/Acetaminophen (Hydrocodon-Acetaminophn 10-325 tablet), 1 TAB PO Q8H PRN for SEVERE PAIN 7-10 Durable Medical Equipment [place], Insulin Disposable (Bd Ultra-Fine Pen Needle), SYR SUBCUT DAILY, (DME) Past Medical History Past Medical History: Hypertension, GERD, Peptic Ulcer Disease, *HEMATOLOGY*, Diabetes, Chronic Pain, Chronic Back Pain, Deep Vein Thrombosis Past Surgical History: other Other Past Surgical History: Vein strip done in each leg Patient History: Patient reports no known family medical history. Alcohol Use: None Drug Use: none Lives In: Home Occupation: retired Review of Systems Constitutional: Denies: chills, fever, weakness Eyes: Denies: pain, blurred vision ENT: Denies: ear pain, nose pain, throat pain, mouth pain Respiratory: Denies: cough, shortness of breath Cardiovascular: Denies: chest pain, palpitations Gastrointestinal: Denies: abdominal pain, nausea, vomiting Genitourinary: Denies: burning, dysuria Male Genitalia: Denies: penile discharge, testicular pain Neurological: Denies: headache, dizziness Musculoskeletal: Denies: pain, swelling Integumentary: Denies: rash, lesions Allergic/Immunologic: Denies: hives, itching Hematologic/Lymphatic: Denies: no symptoms reported Psychiatric: Denies: depression, anxiety Physical Exam Vital Signs: Temperature: 98.5, Source: Temporal, Heart Rate: 107, Respiratory Rate: 18, BP: 132/78, Pulse Oximetry: 99, Weight: 104.550 Oxygen Flow Rate: 0 Physical Exam General: Awake and Alert, no acute distress. HEENT: Conjunctiva pink, Sclera clear, Mucus Membranes moist. Neck: Supple without masses and tenderness. Musculoskeletal: Patient on exam does have significant tenderness to palpation of the left lateral hip without sign of ecchymosis or hematoma. Patient has decreased range of motion of his hips bilaterally slightly worse on the left side due to pain. Patient is neurovascularly intact distally. Motor function intact distally. Extremities: No cyanosis,clubbing or edema. Skin: Warm and Dry. Progress Results/Orders Results/Orders Completed Orders - SEAMUS RUVALCABA PAC Hydrocodone/Apap 10/325 (Elsa 10/325mg (03/07/25 16:23) Vital Signs 03/07/25 13:41 Temp 98.5 Pulse 107 Resp 18 B/P (MAP) 132/78 Pulse Ox 99 O2 Flow Rate 0 EKG/XRAY/CT/US/VASC/MRI Bone/Soft Tissue X-Ray (Ext.) : Additional Comment X-ray X-ray of left hip interpreted by myself today shows no sign of acute fracture, orthopedic hardware in place, postoperative changes of the left femoral neck percutaneous pinning. DIAGNOSTIC RADIOLOGY Patient: RAUL JOHNSON Medical Record: [id number] [facility] : 1945, Age: 80 Sex: Male Location: ER Patient Status: REG ER Service Date/Time: 03/07/251424 Ordering Physician: DUYEN GARG MD Exam: HIP UNILATERAL 2 VIEWS CLINICAL INDICATION: HIP PAIN AFTER FALL TECHNIQUE: AP view of the pelvis and AP and frogleg lateral views of the left hip were performed. DI HIP UNILATERAL 2 VIEWS Comparison: DI HIP UNILATERAL 2 VIEWS on DOS: 09/04/24, DI HIP UNILATERAL 2 VIEWS on DOS: 09/04/24, CT CT LOWER EXTREMITY on DOS: 09/03/24, DI FEMUR 2 VIEWS on DOS: 09/02/24, DI PELVIS,LIMITED 1-2 VIEWS on DOS: 09/02/24 FINDINGS/IMPRESSION: 1. No acute fracture of the pelvis or hips. 2. Postoperative changes of left femoral neck percutaneous pinning re- identified. Surgical clips are re-identified in the left inguinal region. 3. Advanced lower lumbar degenerative disc disease, not fully imaged here. Electronically Signed by:KARLOS GONZALEZ MD Date & Time: 03/07/25 1436 Dictated by: KARLOS GONZALEZ MD Dictation date and time: 03/07/25 1420 Primary Care Provider: NO PRIMARY CARE PROVIDER cc: DUYEN GARG MD ~ Medical Decision Making Findings Patient is seen today with complaints of left-sided hip pain after he slipped and fell onto his left hip and left side. Patient denies any pain in his upper extremities or any other pain in his lower extremities. He states he sometimes takes Elsa 10s for pain in his requesting some of those today. Patient has no other concern or complaint at this time. Patient was given a Elsa 10/325 mg tablet in the ED today. X-ray of left hip shows no sign of fracture or dislocation with orthopedic hardware in place. Patient will be given prescription for home for Elsa 10/325 mg one tab t.i.d. for seven days. Patient will follow up with primary care in 3-5 days if no better as needed sooner. Return to ED with any worsening, concerning or changing symptoms. Departure Disposition: HOME / SELF CARE / HOMELESS Impression: Primary Impression: Hip pain Qualified Codes: M25.552 - Pain in left hip Additional Impression: Superficial bruising Condition: Improved Discharge Instructions: Contusion (Bruise) Additional Instructions: Patient was given a Elsa 10/325 mg tablet in the ED today. X-ray of left hip shows no sign of fracture or dislocation with orthopedic hardware in place. Patient will be given prescription for home for Elsa 10/325 mg one tab t.i.d. for seven days. Patient will follow up with primary care in 3-5 days if no better as needed sooner. Return to ED with any worsening, concerning or changing symptoms. Referrals: NO PRIMARY CARE PROVIDER (PCP) Prescriptions Hydrocodone Bit/Acetaminophen (Hydrocodone-Apap 10-325 Tablet) 10mg/325mg Tablet 1 TAB PO TID PRN PRN for pain for 7 Days, #21 TAB Prov: SEAMUS RUVALCABA 03/07/25 Signature Scribe Signature: No scribe Attestation: No scribe SEAMUS RUVALCABA PAC Mar 07, 2025 16:32
[2025-03-07] MEDS ORDERED: HYDR-3973 PO (16:36)
[2025-03-07 17:02] VITALS: RESP 14
[2025-03-07 17:30] VITALS: TEMP 98.5
== END 2025-03-07 17:33 | disposition home or self-care (01) ==
LOC: ER 13:34
DX: S70.02XA Contusion of left hip, initial encounter (principal); E11.9 Type 2 diabetes mellitus without complications; I10 Essential (primary) hypertension; K21.9 Gastro-esophageal reflux disease without esophagitis; W01.0XXA Fall on same level from slipping, tripping and stumbling without subsequent striking against object, initial encounter; Y93.89 Activity, other specified; Y92.89 Other specified places as the place of occurrence of the external cause; Y99.8 Other external cause status
CPT/HCPCS: 73502; 99284